=== PATIENT | male | born 1950 | race Caucasian/White ===

== ENCOUNTER 2016-10-19 12:01 | Inpatient (IN) | payer MEDICARE, MEDICAID ==
[~2016-10-19] VITALS: Ht 182.9 cm; Wt 62.6 kg
[2016-10-19] VITALS (10 sets, daily range): BP systolic 86–153; BP diastolic 57–77
[2016-10-19] MEDS ORDERED: Vancomycin 1 GM in NS 275 ML IV ONE (12:30)
[2016-10-19] MEDS ORDERED: Piperacillin/Tazobactam 3.375 GM in NS 110 ML IVPB ONE (12:30)
[2016-10-19] MEDS ORDERED: Zosyn 3.375gm inj ONE (12:31)
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
[2016-10-19] MEDS ORDERED: Zemuron 50mg/5ml Inj IV ONE (12:45)
[2016-10-19] MEDS ORDERED: Etomidate 40mg/20ml Inj IV ONE (12:45)
[2016-10-19] MEDS ORDERED: Acetaminophen 650 MG SUPP RECTAL ONE (12:45)
[2016-10-19 12:54] LABS: MEAN CORPUSCULAR HEMOGLOBIN 22.7 PG (27.0-31.0); MEAN CORPUSCULAR HGB CONC 28.1 G/DL (32.0-36.0); MEAN CORPUSCULAR VOLUME 81 FL (80-99); PLATELET COUNT 282 K/UL (150-450); RED BLOOD COUNT 6.47 M/UL (4.70-6.10); RED CELL DISTRIBUTION WIDTH 17.8 % (11.6-14.8)
[2016-10-19 12:59] LABS: WHITE BLOOD COUNT 31.1 K/UL (4.8-10.8)
[2016-10-19] MEDS ORDERED: EPINEPHrine 1mg/1ml Amp ONE (13:04)
[2016-10-19 13:11] LABS: ALBUMIN/GLOBULIN RATIO 0.5 (1.0-2.7); CALCIUM 9.2 mg/dL (8.6-10.2); CREATININE 1.9 mg/dL (0.7-1.2); GLOMERULAR FILTRATION RATE 35.9 mL/min (>60); POTASSIUM 4.1 mEQ/L (3.4-4.9); TOTAL PROTEIN 9.1 g/dL (6.6-8.7); TROPONIN I < 0.30 ng/mL (<=0.30)
[2016-10-19 13:15] LABS: REFLEX LACTIC ACID YES OR NO YES
[2016-10-19 13:28] LABS: BAND NEUTROPHILS % (MANUAL) 4 % (0-8); LYMPHOCYTES % (MANUAL) 5 % (20-45); NEUTROPHILS % (MANUAL) 80 % (45-75); TOTAL CELLS COUNTED 100
[2016-10-19 13:29] LABS: ANISOCYTOSIS 1+; BASOPHILS % (MANUAL) 0 % (0-2); EOSINOPHILS % (MANUAL) 0 % (0-3); HYPOCHROMASIA 1+; MICROCYTES 1+; PLATELET ESTIMATE ADEQUATE; PLATELET MORPHOLOGY NORMAL
[2016-10-19] MEDS ORDERED: Vancomycin 1gm inj IVPB ONE (13:34)
[2016-10-19] MEDS ORDERED: DuoNeb 0.5-3(2.5)mg/3ml neb HHN PRN (14:00)
[2016-10-19] MEDS ORDERED: LORazepam Inj 2mg/ml 1ml IV PRN (14:00)
[2016-10-19] MEDS ORDERED: Morphine Sulfate 4mg/ml Inj IVP PRN (14:00)
[2016-10-19] MEDS ORDERED: Miralax 17gm pkt ORAL PRN (14:00)
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
[2016-10-19] MEDS ORDERED: Amikacin Rx to dose MISC PRN (14:15)
[2016-10-19 14:50] LABS: APPEARANCE,URINE SLIGHTLY CLOUDY; KETONES,URINE 1+ (NEGATIVE); LEUKOCYTE ESTERASE ,URINE 3+ (NEGATIVE); NITRITE,URINE NEGATIVE (NEGATIVE); PH,URINE 5 (4.5-8.0); PROTEIN,URINE 3+ (NEGATIVE); UROBILINOGEN,URINE 1 MG/DL (0.0-1.0)
[2016-10-19 14:59] LABS: BACTERIA,URINE FEW /HPF; SQUAMOUS EPITHELIAL CELL,UR OCCASIONAL /LPF (NONE/OCC); WBC,URINE 30-40 /HPF (0 - 0)
[2016-10-19 15:00] LABS: YEAST,URINE FEW /HPF
[2016-10-19] MEDS ORDERED: Ertapenem 1 GM in NS 55 ML IV SCH (16:00)
[2016-10-19 16:45] LABS: ALBUMIN/GLOBULIN RATIO 0.5 (1.0-2.7); CALCIUM 8.3 mg/dL (8.6-10.2); CREATININE 1.8 mg/dL (0.7-1.2); GLOMERULAR FILTRATION RATE 38.2 mL/min (>60); POTASSIUM 4.4 mEQ/L (3.4-4.9); TOTAL PROTEIN 8.3 g/dL (6.6-8.7)
--- NOTE | 2016-10-19 16:49 | Consultation ---
Consult Note Consult Note Asked to eval at the request of Dr Flowers for renal failure Chief Complaint: Altered Level of Consciousness S HPI 66YOM BIBEMS from SNF for "altered mental status." EMS unable to provide specifics as to AMS. All info on PMHx from paperwork. No family members bedside. Per Paperwork on Levaquin for UTI Allergies: Coded Allergies: FLUPHENAZINE (Unverified Allergy, Unknown, 10/19/16) HALOPERIDOL (Unverified Allergy, Unknown, 10/19/16) Past Medical History: DM, COPD, dementia, psych hx Past Surgical History: other - Gtube Hx COPD: Yes Hx Diabetes: Yes History Of Psychiatric Problem: Yes - bipolar, dementia Patient examined- not historian- case discussed with RN Data reviewed Assessment/Plan Septic Shock Acute renal failure Free water deficit h/o COPD , DM , Psych disease Free water antibiotics Hemodynamic support Keep the BS in check Avoid nephrotoxics per orders KEV FELIX October 19, 2016 16:49
[2016-10-19 16:55] LABS: THYROID STIMULATING HORMONE 1.17 uIU/mL (0.300-4.500)
[2016-10-19] MEDS ORDERED: Amikacin 500 MG in NS 110 ML IV ONE (17:00)
[2016-10-19 17:10] LABS: MAGNESIUM 3.3 mg/dL (1.7-2.5); PHOSPHORUS 4.2 mg/dL (2.5-4.8); URIC ACID 12.5 mg/dL (3.0-7.5)
[2016-10-19] MEDS: Pantoprazole Inj IVP SCH ×2 (17:47→21:27)
[2016-10-19] MEDS: Heparin 5000 units/ml inj SUBQ SCH (21:28)
[2016-10-19] MEDS: Piperacillin/Tazobactam 3.375 GM in D5W 110 ML IVPB SCH (21:34)
[2016-10-19 22:38] LABS: REFLEX LACTIC ACID YES OR NO YES
--- NOTE | 2016-10-19 23:00 | History and Physical ---
History of Present Illness General Date patient seen: October 19, 2016 Reason for Hospitalization: Altered Level of Consciousness Present Illness HPI 66 year old male with hx of Dementia, cachexia, DM from SNF brought in by paramedics for "altered mental status. Pt was found to be in renal failure, acidotic. admitted to ICU for further work up. Allergies: Coded Allergies: FLUPHENAZINE (Unverified Allergy, Unknown, 10/19/16) HALOPERIDOL (Unverified Allergy, Unknown, 10/19/16) Patient History Healthcare decision maker [facility] in [facility] Resuscitation status Full Code Advanced Directive on File Past Medical/Surgical History Past Medical/Surgical History: (1) Feeding by G-tube (2) Cachexia (3) Diabetes mellitus (4) COPD (chronic obstructive pulmonary disease) Review of Systems Constitutional: Reports: no symptoms Physical Exam General Appearance: WD/WN Lines, tubes and drains: peripheral, central line HEENT: normocephalic, atraumatic Neck: non-tender, normal alignment Respiratory/Chest: chest wall non-tender, lungs clear Cardiovascular/Chest: normal peripheral pulses, normal rate Abdomen: normal bowel sounds, non tender Genitourinary/Rectal: normal genital exam Extremities: normal range of motion Last 24 Hour Vital Signs Date Time Temp Pulse Resp B/P Pulse Ox O2 Delivery O2 Flow Rate FiO2 10/19/16 22:00 102 34 100/65 100 Nasal Cannula 2.0 10/19/16 21:00 104 20 86/59 100 Nasal Cannula 2.0 10/19/16 20:00 99.8 105 31 95/63 100 Nasal Cannula 2.0 10/19/16 20:00 105 10/19/16 19:00 104 20 92/62 100 Nasal Cannula 2.0 10/19/16 18:00 102 20 153/77 100 Nasal Cannula 2.0 10/19/16 17:00 122 21 95/77 100 Nasal Cannula 2.0 10/19/16 16:00 120 19 94/69 100 Nasal Cannula 2.0 10/19/16 16:00 122 10/19/16 15:30 93/65 10/19/16 14:57 99.7 120 19 86/67 100 Nasal Cannula 2.0 10/19/16 14:40 99.1 127 20 99/57 100 Nasal Cannula 2.0 10/19/16 13:57 99.1 127 20 99/57 100 Nasal Cannula 2.0 10/19/16 11:57 61 20 109/56 100 Nasal Cannula 2.0 Laboratory Tests Test 10/19/16 12:45 10/19/16 14:00 10/19/16 15:30 10/19/16 21:45 White Blood Count 31.1 K/UL (4.8-10.8) *H Red Blood Count 6.47 M/UL (4.70-6.10) H Hemoglobin 14.7 G/DL (14.2-18.0) Hematocrit 52.2 % (42.0-52.0) H Mean Corpuscular Volume 81 FL (80-99) Mean Corpuscular Hemoglobin 22.7 PG (27.0-31.0) L Mean Corpuscular Hemoglobin Concent 28.1 G/DL (32.0-36.0) L Red Cell Distribution Width 17.8 % (11.6-14.8) H Platelet Count 282 K/UL (150-450) Mean Platelet Volume 8.0 FL (6.5-10.1) Neutrophils (%) (Auto) % (45.0-75.0) Lymphocytes (%) (Auto) % (20.0-45.0) Monocytes (%) (Auto) % (1.0-10.0) Eosinophils (%) (Auto) % (0.0-3.0) Basophils (%) (Auto) % (0.0-2.0) Differential Total Cells Counted 100 Neutrophils % (Manual) 80 % (45-75) H Lymphocytes % (Manual) 5 % (20-45) L Monocytes % (Manual) 11 % (1-10) H Eosinophils % (Manual) 0 % (0-3) Basophils % (Manual) 0 % (0-2) Band Neutrophils 4 % (0-8) Platelet Estimate Adequate Platelet Morphology Normal Hypochromasia 1+ Anisocytosis 1+ Microcytosis 1+ Sodium Level 180 mEQ/L (135-145) *H 179 mEQ/L (135-145) *H Potassium Level 4.1 mEQ/L (3.4-4.9) 4.4 mEQ/L (3.4-4.9) Chloride Level 135 mEQ/L (98-107) H 139 mEQ/L (98-107) H Carbon Dioxide Level 29 mEQ/L (20-30) 24 mEQ/L (20-30) Anion Gap 15 (5-15) 16 (5-15) H Blood Urea Nitrogen 71 mg/dL (7-23) H 74 mg/dL (7-23) H Creatinine 1.9 mg/dL (0.7-1.2) H 1.8 mg/dL (0.7-1.2) H Estimat Glomerular Filtration Rate 35.9 mL/min (>60) 38.2 mL/min (>60) Glucose Level 237 mg/dL (74-106) H 212 mg/dL (74-106) H Lactic Acid Level 4.60 mmol/L (0.66-2.22) H 2.90 mmol/L (0.66-2.22) H 2.20 mmol/L (0.66-2.22) Calcium Level 9.2 mg/dL (8.6-10.2) 8.3 mg/dL (8.6-10.2) L Total Bilirubin 0.3 mg/dL (0.0-1.2) 0.4 mg/dL (0.0-1.2) Aspartate Amino Transf (AST/SGOT) 45 U/L (5-40) H 51 U/L (5-40) H Alanine Aminotransferase (ALT/SGPT) 40 U/L (3-41) 36 U/L (3-41) Alkaline Phosphatase 66 U/L (40-129) 62 U/L (40-129) Total Creatine Kinase 1737 U/L (38-174) H 1510 U/L (38-174) H Creatine Kinase MB 3.0 ng/mL (< 6.7) Creatine Kinase MB Relative Index 0.1 Troponin I < 0.30 ng/mL (<=0.30) Total Protein 9.1 g/dL (6.6-8.7) H 8.3 g/dL (6.6-8.7) Albumin 3.3 g/dL (3.5-5.2) L 3.0 g/dL (3.5-5.2) L Globulin 5.8 g/dL 5.3 g/dL Albumin/Globulin Ratio 0.5 (1.0-2.7) L 0.5 (1.0-2.7) L Urine Color Yellow Urine Appearance Slightly cloudy Urine pH 5 (4.5-8.0) Urine Specific [place] 1.015 (1.005-1.035) Urine Protein 3+ (NEGATIVE) H Urine Glucose (UA) Negative (NEGATIVE) Urine Ketones 1+ (NEGATIVE) H Urine Occult Blood 4+ (NEGATIVE) H Urine Nitrite Negative (NEGATIVE) Urine Bilirubin Negative (NEGATIVE) Urine Urobilinogen 1 MG/DL (0.0-1.0) H Urine Leukocyte Esterase 3+ (NEGATIVE) H Urine RBC 5-10 /HPF (0 - 0) H Urine WBC 30-40 /HPF (0 - 0) H Urine Squamous Epithelial Cells Occasional /LPF Urine Bacteria Few /HPF (NONE) Urine Yeast Few /HPF (NONE) H Urine Eosinophils None seen Urine Osmolality Pending Urine Random Sodium 22 mmol/L Urine Random Chloride 27 mmol/L Urine Potassium Timed 118 mmol/L Plasma/Serum Osmolality Pending Uric Acid 12.5 mg/dL (3.0-7.5) H Phosphorus Level 4.2 mg/dL (2.5-4.8) Magnesium Level 3.3 mg/dL (1.7-2.5) H Thyroid Stimulating Hormone (TSH) 1.170 uIU/mL (0.300-4.500) Free Thyroxine 1.11 ng/dL (0.86-1.85) Free Triiodothyronine Pending Cortisol Pending Height (Feet): 5 Height (Inches): 6.00 Weight (Pounds): 130 Medications Current Medications Medications (Trade) Dose Ordered Sig/Rafael Route PRN Reason Start Time Stop Time Status Last Admin Dose Admin Acetaminophen (Tylenol) 650 mg Q4H PRN ORAL T>100.5 10/19/16 14:00 11/18/16 13:59 Albuterol/ Ipratropium (DuoNeb 0.5-3(2.5)mg/3ml) 3 ml Q4H PRN HHN Shortness of Breath 10/19/16 14:00 10/24/16 13:59 Dextrose (Dextrose 50%) STAT PRN IV Hypoglycemia 10/19/16 18:45 11/18/16 18:44 Heparin Sodium (Porcine) (Heparin 5000 units/ml) 5,000 units EVERY 12 HOURS SUBQ 10/19/16 21:00 11/18/16 20:59 10/19/16 21:28 Insulin Aspart (NovoLOG) Q6HR SUBQ 10/20/16 00:00 11/19/16 00:00 Lorazepam 2 mg 2 mg Q2H PRN IV For Anxiety 10/19/16 14:00 10/26/16 13:59 Morphine Sulfate (Morphine Sulfate) 4 mg Q4H PRN IVP Severe Pain (Pain Scale 7-10) 10/19/16 14:00 10/26/16 13:59 Norepinephrine Bitartrate/ Dextrose (Levophed/D5W) 254 ml @ 0 mls/hr Q24H IV 10/19/16 15:30 11/18/16 15:29 Ondansetron HCl (Zofran) 4 mg Q6H PRN IVP Nausea & Vomiting 10/19/16 14:00 11/18/16 13:59 Pantoprazole (Protonix) 40 mg Q12HR IVP 10/19/16 17:00 11/18/16 16:59 10/19/16 21:27 Piperacillin Sod/ Tazobactam Sod 3.375 gm/Dextrose 110 ml @ 27.5 mls/hr EVERY 8 HOURS IVPB 10/19/16 22:00 10/24/16 21:59 10/19/16 21:34 Polyethylene Glycol (Miralax) 17 gm DAILYPRN PRN ORAL Constipation 10/19/16 14:00 11/18/16 13:59 Sodium Chloride (0.45% NS 1000ml) 1,000 ml @ 150 mls/hr Q6H40M IV 10/19/16 17:30 11/18/16 17:29 10/19/16 16:52 Vancomycin HCl 750 mg/Dextrose 275 ml @ 183.708 mls/hr Q24H IVPB 10/20/16 12:00 10/25/16 11:59 Vancomycin HCl 1 ea 1 ea DAILY PRN MISC . 10/19/16 14:30 11/18/16 14:29 Assessment/Plan Problem List: (1) Sepsis ICD Codes: A41.9 - Sepsis, unspecified organism SNOMED: 49209532 Qualifiers: Qualified Codes: A41.9 - Sepsis, unspecified organism (2) FLORIAN (acute kidney injury) ICD Codes: N17.9 - Acute kidney failure, unspecified SNOMED: 74535078 (3) Altered level of consciousness ICD Codes: R40.4 - Transient alteration of awareness SNOMED: 9684191 (4) Hypernatremia ICD Codes: E87.0 - Hyperosmolality and hypernatremia SNOMED: 25442355 Assessment/Plan IV fluids renal work up IV antibiotics f/u wbc avila culture dvt prophylaxis BRIE PASCUAL October 19, 2016 23:00
--- NOTE | 2016-10-19 23:28 | Consultation ---
Consult Note Consult Note ID Dic# [id number] BELL PAREKH M.D. October 19, 2016 23:28
[2016-10-19] MEDS ORDERED: Vancomycin 1 GM in D5W 275 ML IV SCH (23:45)
[2016-10-20] VITALS (21 sets, daily range): BP systolic 83–105; BP diastolic 50–65
[2016-10-20] MEDS: NovoLOG Insulin Flexpen SUBQ SCH ×4 (00:35→18:12)
--- NOTE | 2016-10-20 03:48 | Consultation ---
DATE OF CONSULTATION: 10/19/2016 INFECTIOUS DISEASES CONSULTATION CONSULTING PHYSICIAN: Remy Campoverde M.D. REFERRING PHYSICIAN: Janis Flowers M.D. REASON FOR CONSULTATION: Evaluation of the patient for pneumonia and antibiotic management. HISTORY OF PRESENT ILLNESS: The patient is a 66-year-old male with multiple medical problems as listed above, who was admitted to this center due to respiratory distress and hypertension. Infectious Disease consultation has been requested for further evaluation of patient. The patient is well known to me from prior recent admissions to [facility] where the patient was diagnosed with pneumonia, pneumococcus, pseudomonas and methicillin resistant Staphylococcus aureus. The patient was discharged to complete a total of 2 weeks of Zosyn and vancomycin and 7 days of Levaquin. PAST MEDICAL HISTORY: 1. Sepsis. 2. Pneumonia (pneumococcus, pseudomonas and methicillin resistant Staphylococcus aureus). 3. History of urinary tract infection recently. 4. Chronic obstructive pulmonary disease. 5. Diabetes. 6. Peptic ulcer disease. 7. Peripheral neuropathy. 8. Bipolar disorder. ALLERGIES: No allergy to antibiotics. MEDICATIONS: The patient has been started on IV Zosyn and vancomycin. FAMILY HISTORY: Noncontributory. SOCIAL HISTORY: The patient lives in a alf. REVIEW OF SYSTEMS: Unobtainable. PHYSICAL EXAMINATION: VITAL SIGNS: Temperature 98.8 degrees, pulse 56, respiratory rate 18, and blood pressure 160/64. HEENT: Mild pale conjunctivae. No icterus. NECK: Supple. CHEST: Coarse breathing sounds. HEART: S1 and S2. ABDOMEN: Soft. PEG tube in place. EXTREMITIES: No cyanosis. NEUROLOGIC: Lethargic. LABORATORY AND DIAGNOSTIC DATA: WBC 31, hemoglobin 14, and platelet 282,000. BUN 74 and creatinine 1.8. AST and ALT are unremarkable. Chest x-ray, no acute process. ASSESSMENT: The patient is a 66-year-old male with multiple medical problem, who has been admitted to this medical center with sepsis and hypertension. The patient has been started on broad-spectrum antibiotics while the cultures are pending. PLAN: 1. We will continue on Zosyn and vancomycin day #1. 2. Monitor CBC. 3. Monitor BMP. 4. Monitor cultures (blood, sputum, and urine.) 5. Monitor chest x-ray. 6. Based on the patient's clinical course and laboratories, we will give further recommendations. Thank you Dr. Flowers for allowing me to participate in the care of this patient. I will follow the patient with you during this hospitalization. Remy Campoverde M.D. DR: ART JOB#: [id number] CC:
[2016-10-20] MEDS: Piperacillin/Tazobactam 3.375 GM in D5W 110 ML IVPB SCH ×4 (06:10→21:40)
[2016-10-20 06:19] LABS: MEAN CORPUSCULAR HEMOGLOBIN 22.7 PG (27.0-31.0); MEAN CORPUSCULAR HGB CONC 28.1 G/DL (32.0-36.0); MEAN CORPUSCULAR VOLUME 81 FL (80-99); MEAN PLATELET VOLUME 8.9 FL (6.5-10.1); PLATELET COUNT 121 K/UL (150-450); RED BLOOD COUNT 6.13 M/UL (4.70-6.10); RED CELL DISTRIBUTION WIDTH 17.7 % (11.6-14.8)
[2016-10-20 06:28] LABS: WHITE BLOOD COUNT 24.6 K/UL (4.8-10.8)
[2016-10-20 06:33] LABS: CRP QUANT 3.8 mg/dL (< 0.5); URIC ACID 11.8 mg/dL (3.0-7.5)
[2016-10-20 06:39] LABS: INR 1.3 (0.9-1.1); PROTHROMBIN TIME 13.4 SEC (9.30-11.50)
[2016-10-20 07:02] LABS: ALBUMIN/GLOBULIN RATIO 0.7 (1.0-2.7); CALCIUM 8.2 mg/dL (8.6-10.2); CREATININE 1.6 mg/dL (0.7-1.2); GLOMERULAR FILTRATION RATE 43.7 mL/min (>60); POTASSIUM 4.1 mEQ/L (3.4-4.9); TOTAL PROTEIN 7.8 g/dL (6.6-8.7)
[2016-10-20 07:10] LABS: MAGNESIUM 3.3 MG/DL (1.5-2.4); PHOSPHORUS 4.4 MG/DL (2.5-4.9)
--- NOTE | 2016-10-20 08:27 | Cardiology Report ---
APPROVED REPORT EXAM: Two-dimensional and M-mode echocardiogram with Doppler and color Doppler. INDICATION LV function M-Mode DIMENSIONS Left Atrium (MM)4.1 (1.6-4.0cm) Aortic Root3.9 (2.0-3.7cm) Aortic Cusp Exc.2.2 (1.5-2.0cm) Technically difficult study due to very poor acoustical windows. M-mode measurements of left ventricle not obtainable due to cardiac position (angle) Normal left ventricular chamber size, systolic function and wall motion to extent visualized. Left ventricular ejection fraction grossly estimated to be normal. Study quality precludes accurate assessment of regional wall motion. Mild left ventricular hypertrophy by 2-D. No evidence of pericardial effusion. All other cardiac chamber sizes are within normal limits. Focal aortic valve sclerosis with adequate cusp excursion. Thickened mitral valve leaflets with normal excursion. Mitral annulus and aortic root calcification. Aortic root mild dilatation. Pulmonic valve not well visualized. Normal tricuspid valve structure. IVC at normal size with physiologic collapse. A color flow and spectral Doppler study was performed and revealed: No aortic insufficiency. Trace mitral regurgitation. Trace tricuspid regurgitation. Tricuspid systolic velocities suggests peak right ventricular systolic pressure of 24 mmHg. No pulmonic regurgitation present.
[2016-10-20 08:47] LABS: BAND NEUTROPHILS % (MANUAL) 2 % (0-8); BASOPHILS % (MANUAL) 0 % (0-2); EOSINOPHILS % (MANUAL) 1 % (0-3); LYMPHOCYTES % (MANUAL) 19 % (20-45); NEUTROPHILS % (MANUAL) 72 % (45-75); NUCLEATED RED BLOOD CELLS 1 /100 WBC; PLATELET CLUMPS 2+; PLATELET ESTIMATE ADEQUATE; TOTAL CELLS COUNTED 100
[2016-10-20 08:48] LABS: ANISOCYTOSIS 1+; PLATELET MORPHOLOGY NORMAL
[2016-10-20] MEDS ORDERED: Heparin 2000 units/Ns 1000ml INJ ONE (09:00)
[2016-10-20] MEDS ORDERED: Sodium Bicarbonate 8.4% 50ml Inj IV ONE (09:00)
[2016-10-20] MEDS ORDERED: Pantoprazole Inj IVP SCH (09:00)
[2016-10-20] MEDS ORDERED: Lidocaine 1% Plain 30 ml INJ ONE (09:00)
[2016-10-20 09:16] LABS: ABG PCO2 40.5 mmHg (35.0-45.0)
[2016-10-20 09:17] LABS: ABG ALLEN TEST POSITIVE; ABG BASE EXCESS 4.4
--- NOTE | 2016-10-20 09:21 | Diagnostic Imaging Report ---
Indication:Elevated Bun and Creatinine. Technique: Grayscale and duplex Doppler imaging of the kidneys performed. Comparison: None Findings: The size, contour, and echogenicity of both kidneys are within normal limits. There is a small right renal cyst demonstrated measuring 1.2 cm. Both kidneys measure between 10 and 11 cm in length. There is no hydronephrosis. The IVC and urinary bladder are unremarkable. Impression: Negative study. Right renal cyst
[2016-10-20 09:27] LABS: CORTISOL LC 49.8 ug/dL (.)
[2016-10-20] MEDS: Pantoprazole Inj IVP SCH ×2 (09:31→21:38)
[2016-10-20] MEDS: Heparin 5000 units/ml inj SUBQ SCH ×2 (09:32→21:39)
--- NOTE | 2016-10-20 10:06 | General Progress Note ---
Progress Note Progress Note pt needs PICC line to receive life-saving meds/ treatment. He is unable to sing for consent. No family available to sign for him BRIE PASCUAL October 20, 2016 10:06
--- NOTE | 2016-10-20 10:50 | Diagnostic Imaging Report ---
Indication: Headache Technique: Contiguous 5 mm thick transaxial imaging of the head obtained in a Siemens Sensation [address] scanner. Soft tissue and bone windows generated. Total Dose length Product (DLP): [address] Dose Index Volume (CTDIvol): 70.38 mGy Comparison: none Findings: There is moderate prominence of the ventricles, basal cisterns, and cerebral sulci consistent with atrophy. There is encephalomalacia in the bifrontal regions which may be on the basis of previous trauma. Moderate, nonspecific, white matter hypoattenuation is noted throughout the brain consistent with chronic small vessel disease. There is no midline shift, edema, acute hemorrhage, mass effect, or abnormal extra-axial fluid collections. Bones and extra osseous soft tissues are unremarkable. Impression: No acute intracranial bleed, mass effect or edema. Bifrontal encephalomalacia probably posttraumatic in nature. Moderate atrophy of the brain. Evidence of chronic small vessel disease involving white matter tracts. The CT scanner at [facility] is accredited by the [employer] and the scans are performed using protocols designed to limit radiation exposure to as low as reasonably achievable to attain images of sufficient resolution adequate for diagnostic evaluation.
--- NOTE | 2016-10-20 11:32 | Pulmonolgy Critical Care Note ---
Critical Care - Asmt/Plan Problems: (1) Sepsis (2) FLORIAN (acute kidney injury) (3) Acute encephalopathy (4) Cachexia (5) Diabetes mellitus (6) COPD (chronic obstructive pulmonary disease) Respiratory: monitor respiratory rate, adjust FIO2, CXR Cardiac: continue to monitor HR/BP Renal: F/U I&O, check electrolytes Infectious Disease: check cultures Gastrointestinal: continue feedings/current rate, hold feedings Endocrine: monitor blood sugar, check HgA1C, continue sliding scale insulin Hematologic: transfuse if hgb<8.5 Neurologic: PRN Ativan, PRN Morphine, keep patient comfortable Prophylaxis: Protonix, Heparin Disposition: transfer 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, 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 Critical Care - Objective Last 24 Hour Vital Signs Date Time Temp Pulse Resp B/P Pulse Ox O2 Delivery O2 Flow Rate FiO2 10/20/16 11:00 85 30 101/62 100 Nasal Cannula 2.0 10/20/16 10:00 84 31 98/60 99 Nasal Cannula 2.0 10/20/16 09:00 87 35 105/63 96 Nasal Cannula 2.0 10/20/16 08:00 98.0 88 36 92/63 98 Nasal Cannula 2.0 10/20/16 08:00 88 10/20/16 07:00 85 34 83/61 98 Nasal Cannula 2.0 10/20/16 07:00 87 31 83/59 100 Nasal Cannula 2.0 10/20/16 06:00 87 31 88/60 100 Nasal Cannula 2.0 10/20/16 05:00 86 31 86/62 100 Nasal Cannula 2.0 10/20/16 04:00 102 10/20/16 04:00 97.8 87 31 89/50 100 Nasal Cannula 2.0 10/20/16 03:00 87 31 93/64 100 Nasal Cannula 2.0 10/20/16 02:00 92 31 89/61 100 Nasal Cannula 2.0 10/20/16 01:00 94 31 94/64 100 Nasal Cannula 2.0 10/20/16 00:00 99 10/20/16 00:00 98.2 97 31 87/63 100 Nasal Cannula 2.0 10/19/16 23:00 100 31 93/64 100 Nasal Cannula 2.0 10/19/16 22:00 102 34 100/65 100 Nasal Cannula 2.0 10/19/16 21:00 104 20 86/59 100 Nasal Cannula 2.0 10/19/16 20:00 99.8 105 31 95/63 100 Nasal Cannula 2.0 10/19/16 20:00 105 10/19/16 19:00 104 20 92/62 100 Nasal Cannula 2.0 10/19/16 18:00 102 20 153/77 100 Nasal Cannula 2.0 10/19/16 17:00 122 21 95/77 100 Nasal Cannula 2.0 10/19/16 16:00 120 19 94/69 100 Nasal Cannula 2.0 10/19/16 16:00 122 10/19/16 15:30 93/65 10/19/16 14:57 99.7 120 19 86/67 100 Nasal Cannula 2.0 10/19/16 14:40 99.1 127 20 99/57 100 Nasal Cannula 2.0 10/19/16 13:57 99.1 127 20 99/57 100 Nasal Cannula 2.0 10/19/16 11:57 61 20 109/56 100 Nasal Cannula 2.0 Status: sedated Condition: critical HEENT: atraumatic Lungs: clear Heart: HR/BP stable, HR/BP unstable, regular Abdomen: non-tender Extremities: no C/C/E Decubiti: location Micro: Microbiology Date/Time Source Procedure Growth Status 10/19/16 14:00 Urine,Clean Catch Urine Culture - Preliminary Resulted 10/19/16 17:00 Sacral Wound Gram Stain - Final Resulted 10/19/16 17:00 Sacral Wound Wound Culture Pending Resulted Accucheck: 136 Critical Care - Subjective ROS Limited/Unobtainable: No ICU Day: 2 Condition: critical EKG Rhythm: Sinus Rhythm Fluids: d5w 150 cc.hour Drips: non I&O: Intake and Output 10/19/16 10/20/16 19:00 07:00 Intake Total 955 ml 1705.0 ml Output Total 331 ml 605 ml Balance 624 ml 1100.0 ml Intake IV Total 955 ml 1705.0 ml Output Urine Total 330 ml 605 ml Stool Total 1 ml # Bowel Movements 3 2 CXR: NAD Labs: Laboratory Tests Test 10/19/16 12:45 10/19/16 14:00 10/19/16 15:30 10/19/16 21:45 White Blood Count 31.1 K/UL (4.8-10.8) *H Red Blood Count 6.47 M/UL (4.70-6.10) H Hemoglobin 14.7 G/DL (14.2-18.0) Hematocrit 52.2 % (42.0-52.0) H Mean Corpuscular Volume 81 FL (80-99) Mean Corpuscular Hemoglobin 22.7 PG (27.0-31.0) L Mean Corpuscular Hemoglobin Concent 28.1 G/DL (32.0-36.0) L Red Cell Distribution Width 17.8 % (11.6-14.8) H Platelet Count 282 K/UL (150-450) Mean Platelet Volume 8.0 FL (6.5-10.1) Neutrophils (%) (Auto) % (45.0-75.0) Lymphocytes (%) (Auto) % (20.0-45.0) Monocytes (%) (Auto) % (1.0-10.0) Eosinophils (%) (Auto) % (0.0-3.0) Basophils (%) (Auto) % (0.0-2.0) Differential Total Cells Counted 100 Neutrophils % (Manual) 80 % (45-75) H Lymphocytes % (Manual) 5 % (20-45) L Monocytes % (Manual) 11 % (1-10) H Eosinophils % (Manual) 0 % (0-3) Basophils % (Manual) 0 % (0-2) Band Neutrophils 4 % (0-8) Platelet Estimate Adequate Platelet Morphology Normal Hypochromasia 1+ Anisocytosis 1+ Microcytosis 1+ Sodium Level 180 mEQ/L (135-145) *H 179 mEQ/L (135-145) *H Potassium Level 4.1 mEQ/L (3.4-4.9) 4.4 mEQ/L (3.4-4.9) Chloride Level 135 mEQ/L (98-107) H 139 mEQ/L (98-107) H Carbon Dioxide Level 29 mEQ/L (20-30) 24 mEQ/L (20-30) Anion Gap 15 (5-15) 16 (5-15) H Blood Urea Nitrogen 71 mg/dL (7-23) H 74 mg/dL (7-23) H Creatinine 1.9 mg/dL (0.7-1.2) H 1.8 mg/dL (0.7-1.2) H Estimat Glomerular Filtration Rate 35.9 mL/min (>60) 38.2 mL/min (>60) Glucose Level 237 mg/dL (74-106) H 212 mg/dL (74-106) H Lactic Acid Level 4.60 mmol/L (0.66-2.22) H 2.90 mmol/L (0.66-2.22) H 2.20 mmol/L (0.66-2.22) Calcium Level 9.2 mg/dL (8.6-10.2) 8.3 mg/dL (8.6-10.2) L Total Bilirubin 0.3 mg/dL (0.0-1.2) 0.4 mg/dL (0.0-1.2) Aspartate Amino Transf (AST/SGOT) 45 U/L (5-40) H 51 U/L (5-40) H Alanine Aminotransferase (ALT/SGPT) 40 U/L (3-41) 36 U/L (3-41) Alkaline Phosphatase 66 U/L (40-129) 62 U/L (40-129) Total Creatine Kinase 1737 U/L (38-174) H 1510 U/L (38-174) H Creatine Kinase MB 3.0 ng/mL (< 6.7) Creatine Kinase MB Relative Index 0.1 Troponin I < 0.30 ng/mL (<=0.30) Total Protein 9.1 g/dL (6.6-8.7) H 8.3 g/dL (6.6-8.7) Albumin 3.3 g/dL (3.5-5.2) L 3.0 g/dL (3.5-5.2) L Globulin 5.8 g/dL 5.3 g/dL Albumin/Globulin Ratio 0.5 (1.0-2.7) L 0.5 (1.0-2.7) L Urine Color Yellow Urine Appearance Slightly cloudy Urine pH 5 (4.5-8.0) Urine Specific [place] 1.015 (1.005-1.035) Urine Protein 3+ (NEGATIVE) H Urine Glucose (UA) Negative (NEGATIVE) Urine Ketones 1+ (NEGATIVE) H Urine Occult Blood 4+ (NEGATIVE) H Urine Nitrite Negative (NEGATIVE) Urine Bilirubin Negative (NEGATIVE) Urine Urobilinogen 1 MG/DL (0.0-1.0) H Urine Leukocyte Esterase 3+ (NEGATIVE) H Urine RBC 5-10 /HPF (0 - 0) H Urine WBC 30-40 /HPF (0 - 0) H Urine Squamous Epithelial Cells Occasional /LPF Urine Bacteria Few /HPF (NONE) Urine Yeast Few /HPF (NONE) H Urine Eosinophils None seen Urine Osmolality Pending Urine Random Sodium 22 mmol/L Urine Random Chloride 27 mmol/L Urine Potassium Timed 118 mmol/L Plasma/Serum Osmolality Pending Uric Acid 12.5 mg/dL (3.0-7.5) H Phosphorus Level 4.2 mg/dL (2.5-4.8) Magnesium Level 3.3 mg/dL (1.7-2.5) H Thyroid Stimulating Hormone (TSH) 1.170 uIU/mL (0.300-4.500) Free Thyroxine 1.11 ng/dL (0.86-1.85) Free Triiodothyronine 1.8 pg/mL (2.0-4.4) L Cortisol 49.8 ug/dL (.) Test 10/20/16 05:15 10/20/16 09:00 White Blood Count 24.6 K/UL (4.8-10.8) *H Red Blood Count 6.13 M/UL (4.70-6.10) H Hemoglobin 13.9 G/DL (14.2-18.0) L Hematocrit 49.4 % (42.0-52.0) Mean Corpuscular Volume 81 FL (80-99) Mean Corpuscular Hemoglobin 22.7 PG (27.0-31.0) L Mean Corpuscular Hemoglobin Concent 28.1 G/DL (32.0-36.0) L Red Cell Distribution Width 17.7 % (11.6-14.8) H Platelet Count 121 K/UL (150-450) #L Mean Platelet Volume 8.9 FL (6.5-10.1) Neutrophils (%) (Auto) % (45.0-75.0) Lymphocytes (%) (Auto) % (20.0-45.0) Monocytes (%) (Auto) % (1.0-10.0) Eosinophils (%) (Auto) % (0.0-3.0) Basophils (%) (Auto) % (0.0-2.0) Differential Total Cells Counted 100 Neutrophils % (Manual) 72 % (45-75) Lymphocytes % (Manual) 19 % (20-45) L Monocytes % (Manual) 6 % (1-10) Eosinophils % (Manual) 1 % (0-3) Basophils % (Manual) 0 % (0-2) Band Neutrophils 2 % (0-8) Nucleated Red Blood Cells 1 /100 WBC Platelet Estimate Adequate Platelet Morphology Normal Clumped Platelets 2+ Anisocytosis 1+ Prothrombin Time 13.4 SEC (9.30-11.50) H Prothromb Time International Ratio 1.3 (0.9-1.1) H Activated Partial Thromboplast Time 29 SEC (23-33) Sodium Level 180 mEQ/L (135-145) *H Potassium Level 4.1 mEQ/L (3.4-4.9) Chloride Level 137 mEQ/L (98-107) H Carbon Dioxide Level 25 mEQ/L (20-30) Anion Gap 18 (5-15) H Blood Urea Nitrogen 74 mg/dL (7-23) H Creatinine 1.6 mg/dL (0.7-1.2) H Estimat Glomerular Filtration Rate 43.7 mL/min (>60) Glucose Level 141 mg/dL (74-106) H Uric Acid 11.8 mg/dL (3.0-7.5) H Calcium Level 8.2 mg/dL (8.6-10.2) L Phosphorus Level 4.4 MG/DL (2.5-4.9) Magnesium Level 3.3 MG/DL (1.5-2.4) H Total Bilirubin 0.7 mg/dL (0.0-1.2) Gamma Glutamyl Transpeptidase 19 U/L (8-61) Aspartate Amino Transf (AST/SGOT) 52 U/L (5-40) H Alanine Aminotransferase (ALT/SGPT) 28 U/L (3-41) Alkaline Phosphatase 59 U/L (40-129) Total Creatine Kinase 1012 U/L (38-174) H C-Reactive Protein, Quantitative 3.8 mg/dL (< 0.5) H Pro-B-Type Natriuretic Peptide 6056 pg/mL (0-125) H Total Protein 7.8 g/dL (6.6-8.7) Albumin 3.3 g/dL (3.5-5.2) L Globulin 4.5 g/dL Albumin/Globulin Ratio 0.7 (1.0-2.7) L Arterial Blood pH 7.465 (7.350-7.450) Arterial Blood Partial Pressure CO2 40.5 mmHg (35.0-45.0) Arterial Blood Partial Pressure O2 99.2 mmHg (75.0-100.0) Arterial Blood HCO3 28.5 mmol/L (22.0-26.0) H Arterial Blood Oxygen Saturation 97.1 % (92.0-98.0) Arterial Blood Base Excess 4.4 Tony Test Positive BRIE PASCUAL October 20, 2016 11:32
--- NOTE | 2016-10-20 11:40 | Infectious Diseases Prog Note ---
Assessment/Plan Assessment/Plan A: The patient is a 66-year-old male with Pneumonia Sepsis Respiratory distress Hypotension hx of Pneumonia (pneumococcus, pseudomonas and MRSA ( 09/2016 ) History of urinary tract infection recently COPD Diabetes Peptic ulcer disease Peripheral neuropathy Bipolar disorder PLAN: continue on Zosyn and vancomycin day # 2 Monitor CBC Monitor BMP Monitor cultures (blood, sputum, and urine.) Monitor chest x-ray PICC Subjective Allergies: Coded Allergies: FLUPHENAZINE (Unverified Allergy, Unknown, 10/19/16) HALOPERIDOL (Unverified Allergy, Unknown, 10/19/16) Subjective afebrile Objective Vital Signs Last 24 Hour Vital Signs Date Time Temp Pulse Resp B/P Pulse Ox O2 Delivery O2 Flow Rate FiO2 10/20/16 11:00 85 30 101/62 100 Nasal Cannula 2.0 10/20/16 10:00 84 31 98/60 99 Nasal Cannula 2.0 10/20/16 09:00 87 35 105/63 96 Nasal Cannula 2.0 10/20/16 08:00 98.0 88 36 92/63 98 Nasal Cannula 2.0 10/20/16 08:00 88 10/20/16 07:00 85 34 83/61 98 Nasal Cannula 2.0 10/20/16 07:00 87 31 83/59 100 Nasal Cannula 2.0 10/20/16 06:00 87 31 88/60 100 Nasal Cannula 2.0 10/20/16 05:00 86 31 86/62 100 Nasal Cannula 2.0 10/20/16 04:00 102 10/20/16 04:00 97.8 87 31 89/50 100 Nasal Cannula 2.0 10/20/16 03:00 87 31 93/64 100 Nasal Cannula 2.0 10/20/16 02:00 92 31 89/61 100 Nasal Cannula 2.0 10/20/16 01:00 94 31 94/64 100 Nasal Cannula 2.0 10/20/16 00:00 99 10/20/16 00:00 98.2 97 31 87/63 100 Nasal Cannula 2.0 10/19/16 23:00 100 31 93/64 100 Nasal Cannula 2.0 10/19/16 22:00 102 34 100/65 100 Nasal Cannula 2.0 10/19/16 21:00 104 20 86/59 100 Nasal Cannula 2.0 10/19/16 20:00 99.8 105 31 95/63 100 Nasal Cannula 2.0 10/19/16 20:00 105 10/19/16 19:00 104 20 92/62 100 Nasal Cannula 2.0 10/19/16 18:00 102 20 153/77 100 Nasal Cannula 2.0 10/19/16 17:00 122 21 95/77 100 Nasal Cannula 2.0 10/19/16 16:00 120 19 94/69 100 Nasal Cannula 2.0 10/19/16 16:00 122 10/19/16 15:30 93/65 10/19/16 14:57 99.7 120 19 86/67 100 Nasal Cannula 2.0 10/19/16 14:40 99.1 127 20 99/57 100 Nasal Cannula 2.0 10/19/16 13:57 99.1 127 20 99/57 100 Nasal Cannula 2.0 10/19/16 11:57 61 20 109/56 100 Nasal Cannula 2.0 Height (Feet): 6 Height (Inches): 6.00 Weight (Pounds): 138 HEENT: atraumatic Respiratory/Chest: decreased breath sounds Cardiovascular: normal rate Abdomen: soft, non tender Extremities: no cyanosis Microbiology Date/Time Source Procedure Growth Status 10/19/16 14:00 Urine,Clean Catch Urine Culture - Preliminary Resulted 10/19/16 17:00 Sacral Wound Gram Stain - Final Resulted 10/19/16 17:00 Sacral Wound Wound Culture Pending Resulted Laboratory Tests Test 10/19/16 12:45 10/19/16 14:00 10/19/16 15:30 10/19/16 21:45 White Blood Count 31.1 K/UL (4.8-10.8) *H Red Blood Count 6.47 M/UL (4.70-6.10) H Hemoglobin 14.7 G/DL (14.2-18.0) Hematocrit 52.2 % (42.0-52.0) H Mean Corpuscular Volume 81 FL (80-99) Mean Corpuscular Hemoglobin 22.7 PG (27.0-31.0) L Mean Corpuscular Hemoglobin Concent 28.1 G/DL (32.0-36.0) L Red Cell Distribution Width 17.8 % (11.6-14.8) H Platelet Count 282 K/UL (150-450) Mean Platelet Volume 8.0 FL (6.5-10.1) Neutrophils (%) (Auto) % (45.0-75.0) Lymphocytes (%) (Auto) % (20.0-45.0) Monocytes (%) (Auto) % (1.0-10.0) Eosinophils (%) (Auto) % (0.0-3.0) Basophils (%) (Auto) % (0.0-2.0) Differential Total Cells Counted 100 Neutrophils % (Manual) 80 % (45-75) H Lymphocytes % (Manual) 5 % (20-45) L Monocytes % (Manual) 11 % (1-10) H Eosinophils % (Manual) 0 % (0-3) Basophils % (Manual) 0 % (0-2) Band Neutrophils 4 % (0-8) Platelet Estimate Adequate Platelet Morphology Normal Hypochromasia 1+ Anisocytosis 1+ Microcytosis 1+ Sodium Level 180 mEQ/L (135-145) *H 179 mEQ/L (135-145) *H Potassium Level 4.1 mEQ/L (3.4-4.9) 4.4 mEQ/L (3.4-4.9) Chloride Level 135 mEQ/L (98-107) H 139 mEQ/L (98-107) H Carbon Dioxide Level 29 mEQ/L (20-30) 24 mEQ/L (20-30) Anion Gap 15 (5-15) 16 (5-15) H Blood Urea Nitrogen 71 mg/dL (7-23) H 74 mg/dL (7-23) H Creatinine 1.9 mg/dL (0.7-1.2) H 1.8 mg/dL (0.7-1.2) H Estimat Glomerular Filtration Rate 35.9 mL/min (>60) 38.2 mL/min (>60) Glucose Level 237 mg/dL (74-106) H 212 mg/dL (74-106) H Lactic Acid Level 4.60 mmol/L (0.66-2.22) H 2.90 mmol/L (0.66-2.22) H 2.20 mmol/L (0.66-2.22) Calcium Level 9.2 mg/dL (8.6-10.2) 8.3 mg/dL (8.6-10.2) L Total Bilirubin 0.3 mg/dL (0.0-1.2) 0.4 mg/dL (0.0-1.2) Aspartate Amino Transf (AST/SGOT) 45 U/L (5-40) H 51 U/L (5-40) H Alanine Aminotransferase (ALT/SGPT) 40 U/L (3-41) 36 U/L (3-41) Alkaline Phosphatase 66 U/L (40-129) 62 U/L (40-129) Total Creatine Kinase 1737 U/L (38-174) H 1510 U/L (38-174) H Creatine Kinase MB 3.0 ng/mL (< 6.7) Creatine Kinase MB Relative Index 0.1 Troponin I < 0.30 ng/mL (<=0.30) Total Protein 9.1 g/dL (6.6-8.7) H 8.3 g/dL (6.6-8.7) Albumin 3.3 g/dL (3.5-5.2) L 3.0 g/dL (3.5-5.2) L Globulin 5.8 g/dL 5.3 g/dL Albumin/Globulin Ratio 0.5 (1.0-2.7) L 0.5 (1.0-2.7) L Urine Color Yellow Urine Appearance Slightly cloudy Urine pH 5 (4.5-8.0) Urine Specific [place] 1.015 (1.005-1.035) Urine Protein 3+ (NEGATIVE) H Urine Glucose (UA) Negative (NEGATIVE) Urine Ketones 1+ (NEGATIVE) H Urine Occult Blood 4+ (NEGATIVE) H Urine Nitrite Negative (NEGATIVE) Urine Bilirubin Negative (NEGATIVE) Urine Urobilinogen 1 MG/DL (0.0-1.0) H Urine Leukocyte Esterase 3+ (NEGATIVE) H Urine RBC 5-10 /HPF (0 - 0) H Urine WBC 30-40 /HPF (0 - 0) H Urine Squamous Epithelial Cells Occasional /LPF Urine Bacteria Few /HPF (NONE) Urine Yeast Few /HPF (NONE) H Urine Eosinophils None seen Urine Osmolality Pending Urine Random Sodium 22 mmol/L Urine Random Chloride 27 mmol/L Urine Potassium Timed 118 mmol/L Plasma/Serum Osmolality Pending Uric Acid 12.5 mg/dL (3.0-7.5) H Phosphorus Level 4.2 mg/dL (2.5-4.8) Magnesium Level 3.3 mg/dL (1.7-2.5) H Thyroid Stimulating Hormone (TSH) 1.170 uIU/mL (0.300-4.500) Free Thyroxine 1.11 ng/dL (0.86-1.85) Free Triiodothyronine 1.8 pg/mL (2.0-4.4) L Cortisol 49.8 ug/dL (.) Test 10/20/16 05:15 10/20/16 09:00 White Blood Count 24.6 K/UL (4.8-10.8) *H Red Blood Count 6.13 M/UL (4.70-6.10) H Hemoglobin 13.9 G/DL (14.2-18.0) L Hematocrit 49.4 % (42.0-52.0) Mean Corpuscular Volume 81 FL (80-99) Mean Corpuscular Hemoglobin 22.7 PG (27.0-31.0) L Mean Corpuscular Hemoglobin Concent 28.1 G/DL (32.0-36.0) L Red Cell Distribution Width 17.7 % (11.6-14.8) H Platelet Count 121 K/UL (150-450) #L Mean Platelet Volume 8.9 FL (6.5-10.1) Neutrophils (%) (Auto) % (45.0-75.0) Lymphocytes (%) (Auto) % (20.0-45.0) Monocytes (%) (Auto) % (1.0-10.0) Eosinophils (%) (Auto) % (0.0-3.0) Basophils (%) (Auto) % (0.0-2.0) Differential Total Cells Counted 100 Neutrophils % (Manual) 72 % (45-75) Lymphocytes % (Manual) 19 % (20-45) L Monocytes % (Manual) 6 % (1-10) Eosinophils % (Manual) 1 % (0-3) Basophils % (Manual) 0 % (0-2) Band Neutrophils 2 % (0-8) Nucleated Red Blood Cells 1 /100 WBC Platelet Estimate Adequate Platelet Morphology Normal Clumped Platelets 2+ Anisocytosis 1+ Prothrombin Time 13.4 SEC (9.30-11.50) H Prothromb Time International Ratio 1.3 (0.9-1.1) H Activated Partial Thromboplast Time 29 SEC (23-33) Sodium Level 180 mEQ/L (135-145) *H Potassium Level 4.1 mEQ/L (3.4-4.9) Chloride Level 137 mEQ/L (98-107) H Carbon Dioxide Level 25 mEQ/L (20-30) Anion Gap 18 (5-15) H Blood Urea Nitrogen 74 mg/dL (7-23) H Creatinine 1.6 mg/dL (0.7-1.2) H Estimat Glomerular Filtration Rate 43.7 mL/min (>60) Glucose Level 141 mg/dL (74-106) H Uric Acid 11.8 mg/dL (3.0-7.5) H Calcium Level 8.2 mg/dL (8.6-10.2) L Phosphorus Level 4.4 MG/DL (2.5-4.9) Magnesium Level 3.3 MG/DL (1.5-2.4) H Total Bilirubin 0.7 mg/dL (0.0-1.2) Gamma Glutamyl Transpeptidase 19 U/L (8-61) Aspartate Amino Transf (AST/SGOT) 52 U/L (5-40) H Alanine Aminotransferase (ALT/SGPT) 28 U/L (3-41) Alkaline Phosphatase 59 U/L (40-129) Total Creatine Kinase 1012 U/L (38-174) H C-Reactive Protein, Quantitative 3.8 mg/dL (< 0.5) H Pro-B-Type Natriuretic Peptide 6056 pg/mL (0-125) H Total Protein 7.8 g/dL (6.6-8.7) Albumin 3.3 g/dL (3.5-5.2) L Globulin 4.5 g/dL Albumin/Globulin Ratio 0.7 (1.0-2.7) L Arterial Blood pH 7.465 (7.350-7.450) Arterial Blood Partial Pressure CO2 40.5 mmHg (35.0-45.0) Arterial Blood Partial Pressure O2 99.2 mmHg (75.0-100.0) Arterial Blood HCO3 28.5 mmol/L (22.0-26.0) H Arterial Blood Oxygen Saturation 97.1 % (92.0-98.0) Arterial Blood Base Excess 4.4 Tony Test Positive Current Medications Medications (Trade) Dose Ordered Sig/Rafael Route PRN Reason Start Time Stop Time Status Last Admin Dose Admin Acetaminophen (Tylenol) 650 mg Q4H PRN ORAL T>100.5 10/19/16 14:00 11/18/16 13:59 Albuterol/ Ipratropium (DuoNeb 0.5-3(2.5)mg/3ml) 3 ml Q4H PRN HHN Shortness of Breath 10/19/16 14:00 10/24/16 13:59 Dextrose 1,000 ml @ 150 mls/hr Q6H40M IV 10/20/16 09:00 11/19/16 08:59 10/20/16 09:11 Dextrose STAT PRN IV Hypoglycemia 10/19/16 18:45 11/18/16 18:44 Heparin Sodium (Porcine) (Heparin 5000 units/ml) 5,000 units EVERY 12 HOURS SUBQ 10/19/16 21:00 11/18/16 20:59 10/20/16 09:32 Insulin Aspart (NovoLOG) Q6HR SUBQ 10/20/16 00:00 11/19/16 00:00 10/20/16 06:12 Lorazepam 2 mg 2 mg Q2H PRN IV For Anxiety 10/19/16 14:00 10/26/16 13:59 Morphine Sulfate (Morphine Sulfate) 4 mg Q4H PRN IVP Severe Pain (Pain Scale 7-10) 10/19/16 14:00 10/26/16 13:59 Norepinephrine Bitartrate/ Dextrose (Levophed/D5W) 254 ml @ 0 mls/hr Q24H IV 10/19/16 15:30 11/18/16 15:29 Ondansetron HCl (Zofran) 4 mg Q6H PRN IVP Nausea & Vomiting 10/19/16 14:00 11/18/16 13:59 Pantoprazole (Protonix) 40 mg Q12HR IVP 10/19/16 17:00 11/18/16 16:59 10/20/16 09:31 Piperacillin Sod/ Tazobactam Sod/ Dextrose (Zosyn/D5W) 110 ml @ 27.5 mls/hr EVERY 8 HOURS IVPB 10/19/16 22:00 10/24/16 21:59 10/20/16 06:10 Polyethylene Glycol (Miralax) 17 gm DAILYPRN PRN ORAL Constipation 10/19/16 14:00 11/18/16 13:59 Vancomycin HCl 1 ea 1 ea DAILY PRN MISC . 10/19/16 14:30 11/18/16 14:29 Vancomycin HCl/ Dextrose (Vancomycin/D5W) 275 ml @ 183.708 mls/hr Q24H IVPB 10/20/16 12:00 10/25/16 11:59 BELL PAREKH M.D. October 20, 2016 11:40
[2016-10-20] MEDS ORDERED: Vancomycin 1gm in D5W 275ml IVPB SCH (12:00)
[2016-10-20] MEDS ORDERED: Vancomycin 750mg/D5W 275ml IVPB SCH ×2 (12:00)
--- NOTE | 2016-10-20 12:05 | Diagnostic Imaging Report ---
Indication: Chest Pain Comparison: 10/19/16 A single view chest radiograph was obtained. Findings: [place] foreign body projected over the chest. Remain clear. Heart size is stable and within normal limits. Bones are osteopenic. There is a curvilinear focus of the left lung apex, which is likely a skinfold with mach effect. I doubt this is a pneumothorax. Suggest a followup confirmation. Impression: No significant change compared to the previous exam
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
--- NOTE | 2016-10-20 13:02 | Diagnostic Imaging Report ---
Indication: buttermaker venous access Findings: After the indications, procedure, risks, complications, and alternatives of the procedure were explained, written informed consent was obtained. The left upper extremity was prepped with alcohol. All elements of maximal sterile barrier technique were followed including usage of a cap, mask, sterile gown, sterile gloves, hand hygiene and a large sterile sheet. Sonographic evaluation of the upper extremity was performed demonstrating a patent and compressible brachial vein. Access was obtained under real-time ultrasound guidance and digital image was saved and archived. An .018 wire was introduced. Needle exchanged for a 5 [place] peel-away sheath. Measurements were obtained. A 5 [place] dual-lumen Power PICC line catheter was cut to 40 cm and introduced over the wire. Peel-away sheath and wire were removed.Catheter was secured to the skin using 2-0 Prolene suture. Both ports aspirate and flush easily. Post procedure chest x-ray demonstrates good position of the PICC line catheter within the SVC. Impression: Successful placement of an upper extremity PICC line catheter
[2016-10-20] MEDS ORDERED: Tubing IV Secondary IV ONE (14:05)
[2016-10-20] MEDS ORDERED: DuoNeb 0.5-3(2.5)mg/3ml neb HHN PRN (20:00)
[2016-10-20] MEDS ORDERED: LORazepam Inj 2mg/ml 1ml IV PRN (20:00)
[2016-10-20] MEDS ORDERED: Miralax 17gm pkt ORAL PRN (20:00)
[2016-10-20] MEDS ORDERED: Morphine Sulfate 4mg/ml Inj IVP PRN (20:00)
--- NOTE | 2016-10-20 20:31 | Wound Care Consultation ---
Wound Assessment Wound Assessment #1: Wound Present on Admission: Yes New Wound: No Status Change of Wound: No Wound Location Body Site Modif: mid Wound Location Body Site: sacral Wound Type: pressure ulcer Stephanie Test: Does not Stephanie Pressure Ulcer Stage: IV/unstageable Wound Thickness: Full Thickness Wound Length: 10.5 Wound Width: 11.5 Wound Depth: utd Percent of Wound [place]/Red: 20 Percent of Wound Purple/Maroon: 80 Wound Drainage Description: Serosanguineous Wound Drainage Amount: Scant Wound Drainage Odor: None/Absent Tissue Surrounding Wound: Macerated Wound General Appearance: Reddened Wound Assessment #2: Wound Number: #2 Wound Present on Admission: Yes New Wound: No Status Change of Wound: No Wound Location Body Site Modif: left Wound Location Body Site: trochanter Wound Type: pressure ulcer Stephanie Test: Does not Stephanie Pressure Ulcer Stage: deep tissue injury Wound Thickness: Full Thickness Wound Length: 8.0 Wound Width: 5.0 Wound Depth: utd Percent of Wound Purple/Maroon: 100 Wound Drainage Amount: None Wound Drainage Odor: None/Absent Tissue Surrounding Wound: Erythemic Wound General Appearance: Reddened Wound Assessment #3: Wound Number: #3 Wound Present on Admission: Yes New Wound: No Status Change of Wound: No Wound Location Body Site Modif: right, lateral Wound Location Body Site: metatarsal head - 5th Wound Type: pressure ulcer Stephanie Test: Does not Stephanie Pressure Ulcer Stage: deep tissue injury Wound Thickness: Full Thickness Wound Length: 5.0 Wound Width: 2.5 Wound Depth: utd Percent of Wound Black/Brown: 100 Wound Drainage Amount: None Wound Drainage Odor: None/Absent Tissue Surrounding Wound: Intact Wound General Appearance: Asymptomatic Wound Assessment #4: Wound Number: #4 Wound Present on Admission: Yes New Wound: No Status Change of Wound: No Wound Location Body Site Modif: right, mid, lateral Wound Location Body Site: foot Wound Type: pressure ulcer Stephanie Test: Does not Stephanie Pressure Ulcer Stage: deep tissue injury Wound Thickness: Full Thickness Wound Length: 2.0 Wound Width: 2.0 Wound Depth: utd Percent of Wound Purple/Maroon: 100 Wound Drainage Amount: None Wound Drainage Odor: None/Absent Tissue Surrounding Wound: Intact Wound General Appearance: Reddened Wound Assessment #5: Wound Number: #5 Wound Present on Admission: Yes New Wound: No Status Change of Wound: No Wound Location Body Site Modif: right Wound Location Body Site: heel Wound Type: pressure ulcer Stephanie Test: Does not Stephanie Pressure Ulcer Stage: deep tissue injury Wound Thickness: Full Thickness Wound Length: 3.5 Wound Width: 4.5 Wound Depth: utd Percent of Wound Purple/Maroon: 100 Wound Drainage Amount: None Wound Drainage Odor: None/Absent Tissue Surrounding Wound: Intact Wound General Appearance: Reddened Wound Assessment #6: Wound Number: #6 Wound Present on Admission: Yes New Wound: No Status Change of Wound: No Wound Location Body Site Modif: right Wound Location Body Site: trochanter Wound Type: pressure ulcer Stephanie Test: Does not Stephanie Pressure Ulcer Stage: III Wound Thickness: Full Thickness Wound Length: 1.5 Wound Width: 1.5 Wound Depth: 0.3 Percent of Wound [place]/Red: 100 Wound Drainage Description: Serosanguineous Wound Drainage Amount: Scant Wound Drainage Odor: None/Absent Tissue Surrounding Wound: 5.5 x5.5 daniel wound with purple DTI Wound General Appearance: Reddened Wound Comment #1 Sacral IV/unstageable pressure ulcer #2 Left trochanter DTI pressure ulcer #3 Right trochanter stage III pressure ulcer and large part of surrounding area with DTI purple in color #4 Right heel DTI pressure ulcer #5 Right lateral 5th metatarsal head DTI pressure ulcer brown in color #6 Right mid lateral foot DTI pressure ulcer Recommendation -Sacral area and right trochanter pressure ulcers Cleanse with saline, pat dry, apply Triad cream, cover with Bordered gauze daily and PRN soiled/dislodged -Local wound care per protocol for DTIs -Keep clean and dry -Turn and reposition -Optimize nutrition -Low air loss mattress -Offload both heels -Heel protector on both heels -Assess and f/u accordingly for any changes ROSALIO JUÁREZ RN October 20, 2016 20:31
[2016-10-21] MEDS: NovoLOG Insulin Flexpen SUBQ SCH ×4 (00:05→18:00)
[2016-10-21 00:15] VITALS: BP 98/71
[2016-10-21 04:00] VITALS: BP 100/67
[2016-10-21 05:48] LABS: BASOPHILS % (AUTO) 0.2 % (0.0-2.0); EOSINOPHILS % (AUTO) 0.5 % (0.0-3.0); LYMPHOCYTES % (AUTO) 12.5 % (20.0-45.0); MEAN CORPUSCULAR HEMOGLOBIN 23.6 PG (27.0-31.0); MEAN CORPUSCULAR HGB CONC 29.8 G/DL (32.0-36.0); MEAN CORPUSCULAR VOLUME 79 FL (80-99); MEAN PLATELET VOLUME 10.4 FL (6.5-10.1); MONOCYTES % (AUTO) 3.8 % (1.0-10.0); PLATELET COUNT 136 K/UL (150-450); RED BLOOD COUNT 4.71 M/UL (4.70-6.10); RED CELL DISTRIBUTION WIDTH 17.1 % (11.6-14.8); WHITE BLOOD COUNT 17.9 K/UL (4.8-10.8)
[2016-10-21 06:11] LABS: ALANINE AMINOTRANSFERASE 24 U/L (3-41); ALBUMIN/GLOBULIN RATIO 0.6 (1.0-2.7); ASPARTATE AMINO TRANSFERASE 34 U/L (5-40); CALCIUM 7.7 mg/dL (8.6-10.2); CARBON DIOXIDE 29 mEQ/L (20-30); CHLORIDE 126 mEQ/L (98-107); CREATININE 1.1 mg/dL (0.7-1.2); GLOMERULAR FILTRATION RATE > 60 mL/min (>60); HEMOLYSIS 0; MAGNESIUM 2.5 mg/dL (1.7-2.5); PHOSPHORUS 3.1 mg/dL (2.5-4.8); POTASSIUM 2.8 mEQ/L (3.4-4.9); TOTAL PROTEIN 6.6 g/dL (6.6-8.7)
[2016-10-21 06:17] LABS: ANION GAP 9 (5-15)
[2016-10-21] MEDS: Piperacillin/Tazobactam 3.375 GM in D5W 110 ML IVPB SCH ×3 (06:19→21:24)
[2016-10-21 06:21] LABS: URIC ACID 8.1 mg/dL (3.0-7.5)
[2016-10-21 06:54] LABS: SODIUM 164 mEQ/L (135-145)
[2016-10-21 07:56] LABS: ABG ALLEN TEST POSITIVE; ABG BASE EXCESS 4.2; ABG PCO2 38.1 mmHg (35.0-45.0)
[2016-10-21 08:00] VITALS: BP 94/63
[2016-10-21] MEDS: Heparin 5000 units/ml inj SUBQ SCH ×2 (09:00→21:26)
[2016-10-21] MEDS: Pantoprazole Inj IVP SCH ×2 (10:19→21:24)
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
--- NOTE | 2016-10-21 11:30 | Pulmonology Progress Note ---
Assessment/Plan Problems: (1) Sepsis (2) FLORIAN (acute kidney injury) (3) Altered level of consciousness (4) Hypernatremia Assessment/Plan improving IV fluids check electroltyes resume feeding dvt prophylaxis check NA all notes, meds reviewed. Subjective ROS Limited/Unobtainable: No Interval Events: awake, comfortable, not communicating Constitutional: Reports: no symptoms HEENT: Repors: no symptoms Allergies: Coded Allergies: FLUPHENAZINE (Unverified Allergy, Unknown, 10/19/16) HALOPERIDOL (Unverified Allergy, Unknown, 10/19/16) Objective Last 24 Hour Vital Signs Date Time Temp Pulse Resp B/P Pulse Ox O2 Delivery O2 Flow Rate FiO2 10/21/16 08:16 87 10/21/16 08:00 97.7 80 24 94/63 96 Nasal Cannula 10/21/16 04:00 90 10/21/16 04:00 98.1 80 19 100/67 96 Nasal Cannula 10/21/16 00:15 97.6 78 19 98/71 95 Nasal Cannula 10/21/16 00:00 81 10/20/16 20:00 82 10/20/16 20:00 97.7 82 18 94/65 95 Nasal Cannula 10/20/16 19:30 100 Nasal Cannula 2.0 28 10/20/16 19:30 82 20 Nasal Cannula 2.0 28 10/20/16 19:30 Nasal Cannula 2.0 28 10/20/16 19:00 81 30 103/59 99 Nasal Cannula 2.0 10/20/16 18:00 81 30 103/59 99 Nasal Cannula 2.0 10/20/16 17:00 78 27 102/57 98 Nasal Cannula 2.0 10/20/16 16:00 80 10/20/16 16:00 97.9 80 29 104/60 98 Nasal Cannula 2.0 10/20/16 15:00 84 32 104/60 97 Nasal Cannula 2.0 10/20/16 14:46 99/62 10/20/16 14:00 83 33 99/62 98 Nasal Cannula 2.0 10/20/16 13:00 82 34 105/61 100 Nasal Cannula 2.0 10/20/16 12:00 85 10/20/16 12:00 98.6 85 27 98/61 99 Nasal Cannula 2.0 Intake and Output 10/20/16 10/21/16 19:00 07:00 Intake Total 2340.708 ml 2060.0 ml Output Total 670 ml 700 ml Balance 1670.708 ml 1360.0 ml Intake Free Water 300 ml IV Total 2340.708 ml 1760.0 ml Output Urine Total 670 ml 700 ml # Voids 1 # Bowel Movements 3 1 General Appearance: WD/WN HEENT: normocephalic, atraumatic Respiratory/Chest: chest wall non-tender, lungs clear Cardiovascular: normal peripheral pulses, normal rate Abdomen: normal bowel sounds, soft, non tender Genitourinary: normal external genitalia Extremities: no cyanosis Skin: no rash 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, no motor/sensory deficits Lymphatic: no neck adenopathy Microbiology Date/Time Source Procedure Growth Status 10/19/16 15:30 Blood Blood Culture - Preliminary NO GROWTH AFTER 24 HOURS Resulted 10/19/16 15:15 Blood Blood Culture - Preliminary NO GROWTH AFTER 24 HOURS Resulted 10/20/16 01:30 Sputum Gram Stain Pending Resulted 10/20/16 01:30 Sputum Culture - Preliminary Staphylococcus Aureus Resulted 10/19/16 13:50 Nasal Nares MRSA Culture - Final Staphylococcus Aureus - Mrsa Complete 10/19/16 16:00 Stool Clostridium difficile Toxin Assay - Final Complete 10/19/16 14:00 Urine,Clean Catch Urine Culture - Preliminary Gram Negative Bacillus 1 Yeast Species Resulted 10/19/16 17:00 Sacral Wound Gram Stain - Final Resulted 10/19/16 17:00 Wound Culture - Preliminary Gram Negative Bacillus 1 Staphylococcus Aureus Resulted 10/19/16 13:50 Rectum VRE Culture - Final Enterococcus Faecium - Vre Complete Laboratory Tests 10/21/16 04:45: White Blood Count 17.9H, Red Blood Count 4.71, Hemoglobin 11.1L, Hematocrit 37.3L, Mean Corpuscular Volume 79L, Mean Corpuscular Hemoglobin 23.6L, Mean Corpuscular Hemoglobin Concent 29.8L, Red Cell Distribution Width 17.1H, Platelet Count 136L, Mean Platelet Volume 10.4H, Neutrophils (%) (Auto) 83.0H, Lymphocytes (%) (Auto) 12.5L, Monocytes (%) (Auto) 3.8, Eosinophils (%) (Auto) 0.5, Basophils (%) (Auto) 0.2, Sodium Level 164#*H, Potassium Level 2.8L, Chloride Level 126H, Carbon Dioxide Level 29, Anion Gap 9, Blood Urea Nitrogen 47#H, Creatinine 1.1, Estimat Glomerular Filtration Rate > 60, Glucose Level 124H, Uric Acid 8.1H, Calcium Level 7.7L, Phosphorus Level 3.1, Magnesium Level 2.5, Total Bilirubin 0.7, Gamma Glutamyl Transpeptidase 16, Aspartate Amino Transf (AST/SGOT) 34, Alanine Aminotransferase (ALT/SGPT) 24, Alkaline Phosphatase 62, Total Creatine Kinase 641H, Total Protein 6.6, Albumin 2.7L, Globulin 3.9, Albumin/Globulin Ratio 0.6L 10/21/16 07:49: Arterial Blood pH 7.481H, Arterial Blood Partial Pressure CO2 38.1, Arterial Blood Partial Pressure O2 102.7H, Arterial Blood HCO3 27.8H, Arterial Blood Oxygen Saturation 97.7, Arterial Blood Base Excess 4.2, Tony Test Positive Current Medications Medications (Trade) Dose Ordered Sig/Rafael Route PRN Reason Start Time Stop Time Status Last Admin Dose Admin Acetaminophen (Tylenol) 650 mg Q4H PRN ORAL T>100.5 10/20/16 20:00 11/19/16 19:59 Albuterol/ Ipratropium (DuoNeb 0.5-3(2.5)mg/3ml) 3 ml Q4H PRN HHN Shortness of Breath 10/20/16 20:00 10/25/16 19:59 Dextrose 1,000 ml @ 150 mls/hr Q6H40M IV 10/20/16 20:00 11/19/16 19:59 10/21/16 10:18 Dextrose (Dextrose 50%) STAT PRN IV Hypoglycemia 10/21/16 19:45 11/20/16 19:44 Heparin Sodium (Porcine) (Heparin 5000 units/ml) 5,000 units EVERY 12 HOURS SUBQ 10/20/16 21:00 11/19/16 20:59 10/21/16 09:00 Insulin Aspart (NovoLOG) Q6HR SUBQ 10/21/16 00:00 11/20/16 00:00 10/21/16 00:05 Lorazepam (Ativan 2mg/ml 1ml) 2 mg Q2H PRN IV For Anxiety 10/20/16 20:00 10/27/16 19:59 Morphine Sulfate (Morphine Sulfate) 4 mg Q4H PRN IVP Severe Pain (Pain Scale 7-10) 10/20/16 20:00 10/27/16 19:59 Ondansetron HCl (Zofran) 4 mg Q6H PRN IVP Nausea & Vomiting 10/20/16 20:00 11/19/16 19:59 Pantoprazole (Protonix) 40 mg Q12HR IVP 10/20/16 21:00 11/19/16 20:59 10/21/16 10:19 Piperacillin Sod/ Tazobactam Sod 3.375 gm/Dextrose 110 ml @ 27.5 mls/hr EVERY 8 HOURS IVPB 10/20/16 22:00 10/25/16 21:59 10/21/16 06:19 Polyethylene Glycol (Miralax) 17 gm DAILYPRN PRN ORAL Constipation 10/20/16 20:00 11/19/16 19:59 Potassium Chloride (KCl 20mEq/100ml Premix) 100 ml @ 50 mls/hr ONCE ONCE IVPB 10/21/16 10:00 10/21/16 11:59 10/21/16 10:19 Vancomycin HCl 1 ea 1 ea DAILY PRN MISC PRN RX PROTOCOL 10/21/16 09:00 11/20/16 08:59 Vancomycin HCl/ Dextrose (Vancomycin/D5W) 275 ml @ 183.708 mls/hr Q24H IVPB 10/21/16 12:00 10/26/16 11:59 BRIE PASCUAL October 21, 2016 11:30
[2016-10-21] MEDS ORDERED: Vancomycin 1 GM in D5W 275 ML IVPB SCH (12:00)
[2016-10-21 12:16] VITALS: BP 98/66
[2016-10-21 16:00] VITALS: BP 94/62
--- NOTE | 2016-10-21 18:07 | Infectious Diseases Prog Note ---
Assessment/Plan Assessment/Plan A: The patient is a 66-year-old male with UTI : GNR and UCx : ( Mariaelena : Colonizer ) Pneumonian SCx : Staph A Sepsis , SP Leukocytosis improving Respiratory distress Hypotension hx of Pneumonia (pneumococcus, pseudomonas and MRSA ( 09/2016 ) History of urinary tract infection recently PICC 5/2 COPD Diabetes Peptic ulcer disease Peripheral neuropathy Bipolar disorder PLAN: continue on Zosyn and vancomycin day # 3 Monitor CBC Monitor BMP Monitor cultures (blood, sputum, and urine.) Monitor chest x-ray Subjective Constitutional: Denies: anorexia, chills, drenching sweats, fatigue, fever, no symptoms, other Allergies: Coded Allergies: FLUPHENAZINE (Unverified Allergy, Unknown, 10/19/16) HALOPERIDOL (Unverified Allergy, Unknown, 10/19/16) Subjective afebrile Objective Vital Signs Last 24 Hour Vital Signs Date Time Temp Pulse Resp B/P Pulse Ox O2 Delivery O2 Flow Rate FiO2 10/21/16 16:11 87 10/21/16 12:16 97.3 84 22 98/66 99 Nasal Cannula 10/21/16 11:49 90 10/21/16 08:16 87 10/21/16 08:00 97.7 80 24 94/63 96 Nasal Cannula 10/21/16 04:00 90 10/21/16 04:00 98.1 80 19 100/67 96 Nasal Cannula 10/21/16 00:15 97.6 78 19 98/71 95 Nasal Cannula 10/21/16 00:00 81 10/20/16 20:00 82 10/20/16 20:00 97.7 82 18 94/65 95 Nasal Cannula 10/20/16 19:30 100 Nasal Cannula 2.0 28 10/20/16 19:30 82 20 Nasal Cannula 2.0 28 10/20/16 19:30 Nasal Cannula 2.0 28 10/20/16 19:00 81 30 103/59 99 Nasal Cannula 2.0 Height (Feet): 6 Height (Inches): 6.00 Weight (Pounds): 138 Respiratory/Chest: no respiratory distress Cardiovascular: no gallop/murmur Abdomen: non distended Microbiology Date/Time Source Procedure Growth Status 10/19/16 15:30 Blood Blood Culture - Preliminary NO GROWTH AFTER 24 HOURS Resulted 10/19/16 15:15 Blood Blood Culture - Preliminary NO GROWTH AFTER 24 HOURS Resulted 10/20/16 01:30 Sputum Gram Stain - Final Resulted 10/20/16 01:30 Sputum Culture - Preliminary Staphylococcus Aureus Resulted 10/19/16 13:50 Nasal Nares MRSA Culture - Final Staphylococcus Aureus - Mrsa Complete 10/19/16 16:00 Stool Clostridium difficile Toxin Assay - Final Complete 10/19/16 14:00 Urine,Clean Catch Urine Culture - Preliminary Gram Negative Bacillus 1 Yeast Species Resulted 10/19/16 17:00 Sacral Wound Gram Stain - Final Resulted 10/19/16 17:00 Wound Culture - Preliminary Gram Negative Bacillus 1 Staphylococcus Aureus Resulted 10/19/16 13:50 Rectum VRE Culture - Final Enterococcus Faecium - Vre Complete Laboratory Tests Test 10/21/16 04:45 10/21/16 07:49 White Blood Count 17.9 K/UL (4.8-10.8) H Red Blood Count 4.71 M/UL (4.70-6.10) Hemoglobin 11.1 G/DL (14.2-18.0) L Hematocrit 37.3 % (42.0-52.0) L Mean Corpuscular Volume 79 FL (80-99) L Mean Corpuscular Hemoglobin 23.6 PG (27.0-31.0) L Mean Corpuscular Hemoglobin Concent 29.8 G/DL (32.0-36.0) L Red Cell Distribution Width 17.1 % (11.6-14.8) H Platelet Count 136 K/UL (150-450) L Mean Platelet Volume 10.4 FL (6.5-10.1) H Neutrophils (%) (Auto) 83.0 % (45.0-75.0) H Lymphocytes (%) (Auto) 12.5 % (20.0-45.0) L Monocytes (%) (Auto) 3.8 % (1.0-10.0) Eosinophils (%) (Auto) 0.5 % (0.0-3.0) Basophils (%) (Auto) 0.2 % (0.0-2.0) Sodium Level 164 mEQ/L (135-145) #*H Potassium Level 2.8 mEQ/L (3.4-4.9) L Chloride Level 126 mEQ/L (98-107) H Carbon Dioxide Level 29 mEQ/L (20-30) Anion Gap 9 (5-15) Blood Urea Nitrogen 47 mg/dL (7-23) #H Creatinine 1.1 mg/dL (0.7-1.2) Estimat Glomerular Filtration Rate > 60 mL/min (>60) Glucose Level 124 mg/dL (74-106) H Uric Acid 8.1 mg/dL (3.0-7.5) H Calcium Level 7.7 mg/dL (8.6-10.2) L Phosphorus Level 3.1 mg/dL (2.5-4.8) Magnesium Level 2.5 mg/dL (1.7-2.5) Total Bilirubin 0.7 mg/dL (0.0-1.2) Gamma Glutamyl Transpeptidase 16 U/L (8-61) Aspartate Amino Transf (AST/SGOT) 34 U/L (5-40) Alanine Aminotransferase (ALT/SGPT) 24 U/L (3-41) Alkaline Phosphatase 62 U/L (40-129) Total Creatine Kinase 641 U/L (38-174) H Total Protein 6.6 g/dL (6.6-8.7) Albumin 2.7 g/dL (3.5-5.2) L Globulin 3.9 g/dL Albumin/Globulin Ratio 0.6 (1.0-2.7) L Arterial Blood pH 7.481 (7.350-7.450) Arterial Blood Partial Pressure CO2 38.1 mmHg (35.0-45.0) Arterial Blood Partial Pressure O2 102.7 mmHg (75.0-100.0) H Arterial Blood HCO3 27.8 mmol/L (22.0-26.0) H Arterial Blood Oxygen Saturation 97.7 % (92.0-98.0) Arterial Blood Base Excess 4.2 Tony Test Positive Current Medications Medications (Trade) Dose Ordered Sig/Rafael Route PRN Reason Start Time Stop Time Status Last Admin Dose Admin Acetaminophen (Tylenol) 650 mg Q4H PRN ORAL T>100.5 10/20/16 20:00 11/19/16 19:59 Albuterol/ Ipratropium (DuoNeb 0.5-3(2.5)mg/3ml) 3 ml Q4H PRN HHN Shortness of Breath 10/20/16 20:00 10/25/16 19:59 Dextrose 1,000 ml @ 150 mls/hr Q6H40M IV 10/20/16 20:00 11/19/16 19:59 10/21/16 16:44 Dextrose (Dextrose 50%) STAT PRN IV Hypoglycemia 10/21/16 19:45 11/20/16 19:44 Heparin Sodium (Porcine) (Heparin 5000 units/ml) 5,000 units EVERY 12 HOURS SUBQ 10/20/16 21:00 11/19/16 20:59 10/21/16 09:00 Insulin Aspart (NovoLOG) Q6HR SUBQ 10/21/16 00:00 11/20/16 00:00 10/21/16 00:05 Lorazepam (Ativan 2mg/ml 1ml) 2 mg Q2H PRN IV For Anxiety 10/20/16 20:00 10/27/16 19:59 Morphine Sulfate (Morphine Sulfate) 4 mg Q4H PRN IVP Severe Pain (Pain Scale 7-10) 10/20/16 20:00 10/27/16 19:59 10/21/16 17:06 Ondansetron HCl (Zofran) 4 mg Q6H PRN IVP Nausea & Vomiting 10/20/16 20:00 11/19/16 19:59 Pantoprazole (Protonix) 40 mg Q12HR IVP 10/20/16 21:00 11/19/16 20:59 10/21/16 10:19 Piperacillin Sod/ Tazobactam Sod 3.375 gm/Dextrose 110 ml @ 27.5 mls/hr EVERY 8 HOURS IVPB 10/20/16 22:00 10/25/16 21:59 10/21/16 14:51 Polyethylene Glycol (Miralax) 17 gm DAILYPRN PRN ORAL Constipation 10/20/16 20:00 11/19/16 19:59 10/21/16 17:06 Vancomycin HCl (Vanco rx to dose) 1 ea DAILY PRN MISC PRN RX PROTOCOL 10/21/16 09:00 11/20/16 08:59 Vancomycin HCl/ Dextrose (Vancomycin/D5W) 275 ml @ 183.708 mls/hr Q24H IVPB 10/21/16 12:00 10/26/16 11:59 10/21/16 12:23 BELL PAREKH M.D. October 21, 2016 18:07
[2016-10-21 20:00] VITALS: BP 99/61
[2016-10-21] MEDS ORDERED: 1/2 NS 1000ml IV ONE (20:04)
[2016-10-22] VITALS: BP 95/59
[2016-10-22] MEDS ORDERED: NovoLOG Insulin Flexpen SUBQ SCH
[2016-10-22] MEDS ORDERED: LORazepam Inj 2mg/ml 1ml IV PRN ×2 (02:00)
[2016-10-22 04:00] VITALS: BP_SYST 106; BP_SYST 98; BP_DIAS 62
[2016-10-22] MEDS ORDERED: DuoNeb 0.5-3(2.5)mg/3ml neb HHN PRN ×2 (04:00)
[2016-10-22] MEDS ORDERED: Morphine Sulfate 4mg/ml Inj IVP PRN ×2 (04:00)
[2016-10-22 05:10] LABS: BASOPHILS % (AUTO) 0.2 % (0.0-2.0); EOSINOPHILS % (AUTO) 2.5 % (0.0-3.0); LYMPHOCYTES % (AUTO) 16.4 % (20.0-45.0); MEAN CORPUSCULAR HGB CONC 30.9 G/DL (32.0-36.0); MEAN CORPUSCULAR VOLUME 77 FL (80-99); MEAN PLATELET VOLUME 10.1 FL (6.5-10.1); MONOCYTES % (AUTO) 3.6 % (1.0-10.0); NEUTROPHILS % (AUTO) 77.4 % (45.0-75.0); PLATELET COUNT 112 K/UL (150-450); RED BLOOD COUNT 4.13 M/UL (4.70-6.10); RED CELL DISTRIBUTION WIDTH 16.5 % (11.6-14.8)
[2016-10-22 05:35] LABS: ALANINE AMINOTRANSFERASE 24 U/L (3-41); ALBUMIN/GLOBULIN RATIO 0.7 (1.0-2.7); ASPARTATE AMINO TRANSFERASE 34 U/L (5-40); CALCIUM 7.5 mg/dL (8.6-10.2); CARBON DIOXIDE 29 mEQ/L (20-30); CHLORIDE 108 mEQ/L (98-107); CREATININE 0.8 mg/dL (0.7-1.2); CRP QUANT 2.6 mg/dL (< 0.5); GLOMERULAR FILTRATION RATE > 60 mL/min (>60); HEMOLYSIS 1; MAGNESIUM 2.1 mg/dL (1.7-2.5); SODIUM 148 mEQ/L (135-145); TOTAL PROTEIN 5.9 g/dL (6.6-8.7); URIC ACID 4.3 mg/dL (3.0-7.5)
[2016-10-22] MEDS: Piperacillin/Tazobactam 3.375 GM in D5W 110 ML IVPB SCH ×3 (05:51→21:10)
[2016-10-22 05:52] LABS: ANION GAP 11 (5-15); POTASSIUM 2.8 mEQ/L (3.4-4.9)
[2016-10-22] MEDS: NovoLOG Insulin Flexpen SUBQ SCH ×4 (05:52→18:00)
[2016-10-22] MEDS ORDERED: Piperacillin/Tazobactam 3.375 GM in D5W 110 ML IVPB SCH (06:00)
[2016-10-22 08:15] VITALS: BP 88/53
[2016-10-22] MEDS ORDERED: Heparin 5000 units/ml inj SUBQ SCH (09:00)
[2016-10-22] MEDS ORDERED: Pantoprazole Inj IVP SCH (09:00)
[2016-10-22] MEDS: Heparin 5000 units/ml inj SUBQ SCH ×2 (09:00→21:00)
[2016-10-22] MEDS: Pantoprazole Inj IVP SCH ×2 (09:11→21:10)
[2016-10-22] MEDS ORDERED: Vancomycin 1 GM in D5W 275 ML IVPB SCH (12:00)
[2016-10-22 12:08] VITALS: BP 93/56
[2016-10-22] MEDS: Vancomycin 1 GM in D5W 275 ML IVPB SCH (12:30)
[2016-10-22] MEDS ORDERED: KCl 10% 40mEq/30ml liquid GT ONE ×2 (13:45→17:45)
--- NOTE | 2016-10-22 14:10 | General Progress Note ---
Assessment/Plan Status: stable Status Narrative K low Assessment/Plan status: Septic Shock, recovering Acute renal failure, Cr lower, Na lower Free water deficit h/o COPD , DM , Psych disease Free water - D5W down to 50 cc hour antibiotics Hemodynamic support Keep the BS in check Avoid nephrotoxics per orders Subjective ROS Limited/Unobtainable: No Constitutional: Reports: malaise Allergies: Coded Allergies: FLUPHENAZINE (Unverified Allergy, Unknown, 10/19/16) HALOPERIDOL (Unverified Allergy, Unknown, 10/19/16) Objective Last 24 Hour Vital Signs Date Time Temp Pulse Resp B/P Pulse Ox O2 Delivery O2 Flow Rate FiO2 10/22/16 12:08 98.2 78 24 93/56 96 Nasal Cannula 2.0 10/22/16 08:15 97.7 80 21 88/53 97 Nasal Cannula 2.0 10/22/16 07:49 Nasal Cannula 2.0 28 10/22/16 07:49 97 Nasal Cannula 2.0 28 10/22/16 07:49 80 18 Nasal Cannula 2.0 28 10/22/16 04:00 98.8 69 20 98/62 95 Nasal Cannula 2.0 10/22/16 00:00 98.1 78 20 95/59 99 Nasal Cannula 10/21/16 20:00 98.6 77 20 99/61 99 Nasal Cannula 10/21/16 20:00 76 10/21/16 16:11 87 10/21/16 16:00 97.0 82 22 94/62 99 Nasal Cannula Intake and Output 10/21/16 10/22/16 19:00 07:00 Intake Total 2270 ml 1980.0 ml Output Total 650 ml 450 ml Balance 1620 ml 1530.0 ml Intake Free Water 200 ml 100 ml IV Total 1650 ml 1460.0 ml Tube Feeding 420 ml 420 ml Output Urine Total 650 ml 450 ml # Bowel Movements 1 Laboratory Tests 10/22/16 05:00: White Blood Count 13.0H, Red Blood Count 4.13L, Hemoglobin 9.9L, Hematocrit 32.0L, Mean Corpuscular Volume 77L, Mean Corpuscular Hemoglobin 24.0L, Mean Corpuscular Hemoglobin Concent 30.9L, Red Cell Distribution Width 16.5H, Platelet Count 112L, Mean Platelet Volume 10.1, Neutrophils (%) (Auto) 77.4H, Lymphocytes (%) (Auto) 16.4L, Monocytes (%) (Auto) 3.6, Eosinophils (%) (Auto) 2.5, Basophils (%) (Auto) 0.2, Sodium Level 148H, Potassium Level 2.8L, Chloride Level 108H, Carbon Dioxide Level 29, Anion Gap 11, Blood Urea Nitrogen 25H, Creatinine 0.8, Estimat Glomerular Filtration Rate > 60, Glucose Level 148H , Uric Acid 4.3, Calcium Level 7.5L, Phosphorus Level 3.0, Magnesium Level 2.1, Total Bilirubin 0.4, Gamma Glutamyl Transpeptidase 17, Aspartate Amino Transf ( AST/SGOT) 34, Alanine Aminotransferase (ALT/SGPT) 24, Alkaline Phosphatase 52, C -Reactive Protein, Quantitative 2.6H, Pro-B-Type Natriuretic Peptide 1693H, Total Protein 5.9L, Albumin 2.5L, Globulin 3.4, Albumin/Globulin Ratio 0.7L Height (Feet): 6 Height (Inches): 6.00 Weight (Pounds): 138 General Appearance: no apparent distress Objective other PE not changed KEV FELIX October 22, 2016 14:10
[2016-10-22 15:36] VITALS: BP 94/62
--- NOTE | 2016-10-22 15:50 | Pulmonology Progress Note ---
Assessment/Plan Problems: (1) Sepsis (2) FLORIAN (acute kidney injury) (3) Altered level of consciousness (4) Hypernatremia Assessment/Plan wbc decreasing K supplement improving IV fluids check electrolyes resume feeding dvt prophylaxis check NA all notes, meds reviewed. Subjective ROS Limited/Unobtainable: No Constitutional: Reports: no symptoms HEENT: Repors: no symptoms Allergies: Coded Allergies: FLUPHENAZINE (Unverified Allergy, Unknown, 10/19/16) HALOPERIDOL (Unverified Allergy, Unknown, 10/19/16) Objective Last 24 Hour Vital Signs Date Time Temp Pulse Resp B/P Pulse Ox O2 Delivery O2 Flow Rate FiO2 10/22/16 15:36 97.6 82 23 94/62 97 Nasal Cannula 2.0 10/22/16 12:08 98.2 78 24 93/56 96 Nasal Cannula 2.0 10/22/16 08:15 97.7 80 21 88/53 97 Nasal Cannula 2.0 10/22/16 07:49 Nasal Cannula 2.0 28 10/22/16 07:49 97 Nasal Cannula 2.0 28 10/22/16 07:49 80 18 Nasal Cannula 2.0 28 10/22/16 04:00 98.8 69 20 98/62 95 Nasal Cannula 2.0 10/22/16 00:00 98.1 78 20 95/59 99 Nasal Cannula 10/21/16 20:00 98.6 77 20 99/61 99 Nasal Cannula 10/21/16 20:00 76 10/21/16 16:11 87 10/21/16 16:00 97.0 82 22 94/62 99 Nasal Cannula Intake and Output 10/21/16 10/22/16 19:00 07:00 Intake Total 2270 ml 1980.0 ml Output Total 650 ml 450 ml Balance 1620 ml 1530.0 ml Intake Free Water 200 ml 100 ml IV Total 1650 ml 1460.0 ml Tube Feeding 420 ml 420 ml Output Urine Total 650 ml 450 ml # Bowel Movements 1 Objective General Appearance: WD/WN HEENT: normocephalic, atraumatic Respiratory/Chest: chest wall non-tender, lungs clear Cardiovascular: normal peripheral pulses, normal rate Abdomen: normal bowel sounds, soft, non tender Genitourinary: normal external genitalia Extremities: no cyanosis Skin: no rash 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, no motor/sensory deficits Lymphatic: no neck adenopathy General Appearance: no acute distress Microbiology Date/Time Source Procedure Growth Status 10/20/16 01:30 Sputum Gram Stain - Final Complete 10/20/16 01:30 Sputum Culture - Final Staphylococcus Aureus - Mrsa Usual Upper Respiratory Amberly Complete 10/19/16 16:00 Stool Clostridium difficile Toxin Assay - Final Complete 10/19/16 17:00 Sacral Wound Gram Stain - Final Resulted 10/19/16 17:00 Wound Culture - Preliminary Acinetobacter Baumannii Complx Staphylococcus Aureus - Mrsa Resulted Laboratory Tests 10/22/16 05:00: White Blood Count 13.0H, Red Blood Count 4.13L, Hemoglobin 9.9L, Hematocrit 32.0L, Mean Corpuscular Volume 77L, Mean Corpuscular Hemoglobin 24.0L, Mean Corpuscular Hemoglobin Concent 30.9L, Red Cell Distribution Width 16.5H, Platelet Count 112L, Mean Platelet Volume 10.1, Neutrophils (%) (Auto) 77.4H, Lymphocytes (%) (Auto) 16.4L, Monocytes (%) (Auto) 3.6, Eosinophils (%) (Auto) 2.5, Basophils (%) (Auto) 0.2, Sodium Level 148H, Potassium Level 2.8L, Chloride Level 108H, Carbon Dioxide Level 29, Anion Gap 11, Blood Urea Nitrogen 25H, Creatinine 0.8, Estimat Glomerular Filtration Rate > 60, Glucose Level 148H , Uric Acid 4.3, Calcium Level 7.5L, Phosphorus Level 3.0, Magnesium Level 2.1, Total Bilirubin 0.4, Gamma Glutamyl Transpeptidase 17, Aspartate Amino Transf ( AST/SGOT) 34, Alanine Aminotransferase (ALT/SGPT) 24, Alkaline Phosphatase 52, C -Reactive Protein, Quantitative 2.6H, Pro-B-Type Natriuretic Peptide 1693H, Total Protein 5.9L, Albumin 2.5L, Globulin 3.4, Albumin/Globulin Ratio 0.7L Current Medications Medications (Trade) Dose Ordered Sig/Rafael Route PRN Reason Start Time Stop Time Status Last Admin Dose Admin Acetaminophen (Tylenol) 650 mg Q4H PRN ORAL T>100.5 10/22/16 04:00 11/21/16 03:59 Albuterol/ Ipratropium (DuoNeb 0.5-3(2.5)mg/3ml) 3 ml Q4H PRN HHN Shortness of Breath 10/22/16 04:00 10/27/16 03:59 Dextrose (D5W 1000ml) 1,000 ml @ 50 mls/hr Q20H IV 10/22/16 14:30 11/21/16 14:29 Dextrose (Dextrose 50%) STAT PRN IV Hypoglycemia 10/22/16 19:45 11/21/16 19:44 Heparin Sodium (Porcine) (Heparin 5000 units/ml) 5,000 units EVERY 12 HOURS SUBQ 10/22/16 09:00 11/21/16 08:59 Insulin Aspart (NovoLOG) Q6HR SUBQ 10/22/16 00:00 11/21/16 00:00 10/22/16 12:29 Lorazepam (Ativan 2mg/ml 1ml) 2 mg Q2H PRN IV For Anxiety 10/22/16 02:00 10/29/16 01:59 Morphine Sulfate (Morphine Sulfate) 4 mg Q4H PRN IVP Severe Pain (Pain Scale 7-10) 10/22/16 04:00 10/29/16 03:59 Ondansetron HCl (Zofran) 4 mg Q6H PRN IVP Nausea & Vomiting 10/22/16 02:00 11/21/16 01:59 Pantoprazole (Protonix) 40 mg Q12HR IVP 10/22/16 09:00 11/21/16 08:59 10/22/16 09:11 Piperacillin Sod/ Tazobactam Sod 3.375 gm/Dextrose 110 ml @ 27.5 mls/hr EVERY 8 HOURS IVPB 10/22/16 06:00 10/27/16 05:59 10/22/16 14:04 Polyethylene Glycol (Miralax) 17 gm DAILYPRN PRN ORAL Constipation 10/22/16 20:00 11/21/16 19:59 Potassium Chloride 40 meq 40 meq ONCE ONCE GT 10/22/16 17:45 10/22/16 17:46 Vancomycin HCl (Vanco rx to dose) 1 ea DAILY PRN MISC PRN RX PROTOCOL 10/22/16 09:00 11/21/16 08:59 Vancomycin HCl/ Dextrose (Vancomycin/D5W) 275 ml @ 183.708 mls/hr Q24H IVPB 10/22/16 12:00 10/27/16 11:59 10/22/16 12:30 BRIE PASCUAL October 22, 2016 15:50
[2016-10-22 20:00] VITALS: BP 86/55
[2016-10-22] MEDS ORDERED: Miralax 17gm pkt ORAL PRN ×2 (20:00)
[2016-10-23] VITALS: BP 86/60
[2016-10-23] MEDS: NovoLOG Insulin Flexpen SUBQ SCH ×5 (00:09→23:34)
[2016-10-23 04:00] VITALS: BP 95/59
[2016-10-23] MEDS: Piperacillin/Tazobactam 3.375 GM in D5W 110 ML IVPB SCH ×3 (05:20→21:44)
[2016-10-23 06:03] LABS: BASOPHILS % (AUTO) 0.2 % (0.0-2.0); EOSINOPHILS % (AUTO) 2.8 % (0.0-3.0); LYMPHOCYTES % (AUTO) 18.6 % (20.0-45.0); MEAN CORPUSCULAR HEMOGLOBIN 23.4 PG (27.0-31.0); MEAN CORPUSCULAR HGB CONC 30.4 G/DL (32.0-36.0); MEAN CORPUSCULAR VOLUME 77 FL (80-99); MEAN PLATELET VOLUME 10.2 FL (6.5-10.1); MONOCYTES % (AUTO) 5.5 % (1.0-10.0); NEUTROPHILS % (AUTO) 72.8 % (45.0-75.0); PLATELET COUNT 122 K/UL (150-450); RED BLOOD COUNT 4.36 M/UL (4.70-6.10); RED CELL DISTRIBUTION WIDTH 16.4 % (11.6-14.8); WHITE BLOOD COUNT 12.1 K/UL (4.8-10.8)
[2016-10-23 06:07] LABS: ALANINE AMINOTRANSFERASE 23 U/L (3-41); ALBUMIN/GLOBULIN RATIO 0.7 (1.0-2.7); ANION GAP 9 (5-15); ASPARTATE AMINO TRANSFERASE 28 U/L (5-40); CALCIUM 8.2 mg/dL (8.6-10.2); CARBON DIOXIDE 32 mEQ/L (20-30); CHLORIDE 110 mEQ/L (98-107); CREATININE 0.7 mg/dL (0.7-1.2); GLOMERULAR FILTRATION RATE > 60 mL/min (>60); HEMOLYSIS 2; MAGNESIUM 2.1 mg/dL (1.7-2.5); PHOSPHORUS 3.2 mg/dL (2.5-4.8); POTASSIUM 3.7 mEQ/L (3.4-4.9); SODIUM 151 mEQ/L (135-145); TOTAL PROTEIN 6.1 g/dL (6.6-8.7)
[2016-10-23 07:34] VITALS: BP 82/50
[2016-10-23] MEDS: Heparin 5000 units/ml inj SUBQ SCH (08:05)
[2016-10-23] MEDS: Pantoprazole Inj IVP SCH (08:17)
[2016-10-23 11:18] VITALS: BP 92/58
[2016-10-23] MEDS: Vancomycin 1 GM in D5W 275 ML IVPB SCH (12:09)
--- NOTE | 2016-10-23 13:23 | General Progress Note ---
Assessment/Plan Status: stable Status Narrative low BP Assessment/Plan status: Septic Shock, recovering Acute renal failure, Cr lower, Na lower Free water deficit h/o COPD , DM , Psych disease Free water - D5W Midodrine for low BP antibiotics Hemodynamic support Keep the BS in check Avoid nephrotoxics per orders Subjective ROS Limited/Unobtainable: No Constitutional: Reports: malaise Allergies: Coded Allergies: FLUPHENAZINE (Unverified Allergy, Unknown, 10/19/16) HALOPERIDOL (Unverified Allergy, Unknown, 10/19/16) Objective Last 24 Hour Vital Signs Date Time Temp Pulse Resp B/P Pulse Ox O2 Delivery O2 Flow Rate FiO2 10/23/16 11:18 97.7 72 14 92/58 100 Nasal Cannula 10/23/16 09:47 Nasal Cannula 2.0 10/23/16 09:47 75 18 Nasal Cannula 2.0 10/23/16 09:47 96 Nasal Cannula 2.0 10/23/16 07:34 97.7 74 14 82/50 98 Nasal Cannula 10/23/16 04:00 97.5 71 20 95/59 99 Nasal Cannula 2.0 10/23/16 00:00 97.7 79 20 86/60 97 Nasal Cannula 2.0 10/22/16 20:00 99.1 80 20 86/55 98 Nasal Cannula 2.0 10/22/16 19:28 83 18 Nasal Cannula 2.0 10/22/16 19:28 Nasal Cannula 2.0 28 10/22/16 19:28 98 Nasal Cannula 2.0 10/22/16 15:36 97.6 82 23 94/62 97 Nasal Cannula 2.0 Intake and Output 10/22/16 10/23/16 19:00 07:00 Intake Total 1887.500 ml 1752.5 ml Output Total 1200 ml 2200 ml Balance 687.500 ml -447.5 ml Intake Free Water 200 ml 200 ml IV Total 917.500 ml 712.5 ml Tube Feeding 770 ml 840 ml Output Urine Total 1200 ml 2200 ml # Bowel Movements 1 Laboratory Tests 10/23/16 05:30: White Blood Count 12.1H, Red Blood Count 4.36L, Hemoglobin 10.2L, Hematocrit 33.5L, Mean Corpuscular Volume 77L, Mean Corpuscular Hemoglobin 23.4L, Mean Corpuscular Hemoglobin Concent 30.4L, Red Cell Distribution Width 16.4H, Platelet Count 122L, Mean Platelet Volume 10.2H, Neutrophils (%) (Auto) 72.8, Lymphocytes (%) (Auto) 18.6L, Monocytes (%) (Auto) 5.5, Eosinophils (%) (Auto) 2.8, Basophils (%) (Auto) 0.2, Sodium Level 151H, Potassium Level 3.7, Chloride Level 110H, Carbon Dioxide Level 32H, Anion Gap 9, Blood Urea Nitrogen 14, Creatinine 0.7, Estimat Glomerular Filtration Rate > 60, Glucose Level 121H, Calcium Level 8.2L, Phosphorus Level 3.2, Magnesium Level 2.1, Total Bilirubin 0.3, Aspartate Amino Transf (AST/SGOT) 28, Alanine Aminotransferase (ALT/SGPT) 23, Alkaline Phosphatase 49, Total Protein 6.1L, Albumin 2.6L, Globulin 3.5, Albumin/Globulin Ratio 0.7L 10/23/16 11:15: Vancomycin Level Trough 7.0 Height (Feet): 6 Height (Inches): 6.00 Weight (Pounds): 138 General Appearance: no apparent distress Objective other PE not changed KEV FELIX October 23, 2016 13:23
[2016-10-23 15:31] VITALS: BP 102/62
[2016-10-23] MEDS ORDERED: NS 275ml ONE ×2 (15:41→16:01)
[2016-10-23] MEDS ORDERED: Sterile Water Irrig 1000ml IRRIG ONE ×2 (15:41→16:01)
[2016-10-23] MEDS ORDERED: Tubing IV Secondary IV ONE (16:01)
[2016-10-23] MEDS: Midodrine 10mg tab GT SCH (18:07)
[2016-10-23 20:00] VITALS: BP 93/60
--- NOTE | 2016-10-23 20:16 | Pulmonology Progress Note ---
Assessment/Plan Problems: (1) Sepsis (2) FLORIAN (acute kidney injury) (3) Altered level of consciousness (4) Hypernatremia Assessment/Plan wbc decreasing but still elevated K supplement improving IV fluids check electrolyes tolerating feeding dvt prophylaxis check NA all notes, meds reviewed. Subjective ROS Limited/Unobtainable: No Constitutional: Reports: no symptoms HEENT: Repors: no symptoms Respiratory: Reports: no symptoms Allergies: Coded Allergies: FLUPHENAZINE (Unverified Allergy, Unknown, 10/19/16) HALOPERIDOL (Unverified Allergy, Unknown, 10/19/16) Objective Last 24 Hour Vital Signs Date Time Temp Pulse Resp B/P Pulse Ox O2 Delivery O2 Flow Rate FiO2 10/23/16 20:00 98.8 78 20 93/60 96 Room Air 10/23/16 15:31 97.5 77 16 102/62 96 Room Air 10/23/16 11:18 97.7 72 14 92/58 100 Nasal Cannula 10/23/16 09:47 Nasal Cannula 2.0 28 10/23/16 09:47 75 18 Nasal Cannula 2.0 28 10/23/16 09:47 96 Nasal Cannula 2.0 28 10/23/16 07:34 97.7 74 14 82/50 98 Nasal Cannula 10/23/16 04:00 97.5 71 20 95/59 99 Nasal Cannula 2.0 10/23/16 00:00 97.7 79 20 86/60 97 Nasal Cannula 2.0 Intake and Output 10/22/16 10/23/16 19:00 07:00 Intake Total 1887.500 ml 1752.5 ml Output Total 1200 ml 2200 ml Balance 687.500 ml -447.5 ml Intake Free Water 200 ml 200 ml IV Total 917.500 ml 712.5 ml Tube Feeding 770 ml 840 ml Output Urine Total 1200 ml 2200 ml # Bowel Movements 1 Objective General Appearance: WD/WN HEENT: normocephalic, atraumatic Respiratory/Chest: chest wall non-tender, lungs clear Cardiovascular: normal peripheral pulses, normal rate Abdomen: normal bowel sounds, soft, non tender Genitourinary: normal external genitalia Extremities: no cyanosis Skin: no rash 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, no motor/sensory deficits Lymphatic: no neck adenopathy Laboratory Tests 10/23/16 05:30: White Blood Count 12.1H, Red Blood Count 4.36L, Hemoglobin 10.2L, Hematocrit 33.5L, Mean Corpuscular Volume 77L, Mean Corpuscular Hemoglobin 23.4L, Mean Corpuscular Hemoglobin Concent 30.4L, Red Cell Distribution Width 16.4H, Platelet Count 122L, Mean Platelet Volume 10.2H, Neutrophils (%) (Auto) 72.8, Lymphocytes (%) (Auto) 18.6L, Monocytes (%) (Auto) 5.5, Eosinophils (%) (Auto) 2.8, Basophils (%) (Auto) 0.2, Sodium Level 151H, Potassium Level 3.7, Chloride Level 110H, Carbon Dioxide Level 32H, Anion Gap 9, Blood Urea Nitrogen 14, Creatinine 0.7, Estimat Glomerular Filtration Rate > 60, Glucose Level 121H, Calcium Level 8.2L, Phosphorus Level 3.2, Magnesium Level 2.1, Total Bilirubin 0.3, Aspartate Amino Transf (AST/SGOT) 28, Alanine Aminotransferase (ALT/SGPT) 23, Alkaline Phosphatase 49, Total Protein 6.1L, Albumin 2.6L, Globulin 3.5, Albumin/Globulin Ratio 0.7L 10/23/16 11:15: Vancomycin Level Trough 7.0 Current Medications Medications (Trade) Dose Ordered Sig/Rafael Route PRN Reason Start Time Stop Time Status Last Admin Dose Admin Acetaminophen (Tylenol) 650 mg Q4H PRN ORAL T>100.5 10/22/16 04:00 11/21/16 03:59 Albuterol/ Ipratropium (DuoNeb 0.5-3(2.5)mg/3ml) 3 ml Q4H PRN HHN Shortness of Breath 10/22/16 04:00 10/27/16 03:59 Dextrose (Dextrose 50%) STAT PRN IV Hypoglycemia 10/22/16 19:45 11/21/16 19:44 Heparin Sodium (Porcine) (Heparin 5000 units/ml) 5,000 units EVERY 12 HOURS SUBQ 10/22/16 09:00 11/21/16 08:59 Insulin Aspart (NovoLOG) Q6HR SUBQ 10/22/16 00:00 11/21/16 00:00 10/23/16 12:10 Lorazepam (Ativan 2mg/ml 1ml) 2 mg Q2H PRN IV For Anxiety 10/22/16 02:00 10/29/16 01:59 Midodrine (Pro-Amatine) 10 mg THREE TIMES A DAY GT 10/23/16 18:00 11/22/16 17:59 10/23/16 18:07 Morphine Sulfate (Morphine Sulfate) 4 mg Q4H PRN IVP Severe Pain (Pain Scale 7-10) 10/22/16 04:00 10/29/16 03:59 Ondansetron HCl (Zofran) 4 mg Q6H PRN IVP Nausea & Vomiting 10/22/16 02:00 11/21/16 01:59 Piperacillin Sod/ Tazobactam Sod/ Dextrose (Zosyn/D5W) 110 ml @ 27.5 mls/hr EVERY 8 HOURS IVPB 10/22/16 06:00 10/27/16 05:59 10/23/16 13:38 Polyethylene Glycol (Miralax) 17 gm DAILYPRN PRN ORAL Constipation 10/22/16 20:00 11/21/16 19:59 Ranitidine HCl (Zantac) 150 mg TWICE A DAY GT 10/23/16 18:00 11/22/16 17:59 10/23/16 18:08 Vancomycin HCl 1 ea 1 ea DAILY PRN MISC PRN RX PROTOCOL 10/22/16 09:00 11/21/16 08:59 Vancomycin HCl/ Dextrose (Vancomycin/D5W) 275 ml @ 183.708 mls/hr Q12HR@0000,1200 IVPB 10/24/16 00:00 10/29/16 00:00 BRIE PASCUAL October 23, 2016 20:16
[2016-10-23] MEDS: Vancomycin 750 MG in D5W 275 ML IVPB SCH (23:32)
[2016-10-24] VITALS: BP 102/68
[2016-10-24 04:00] VITALS: BP 97/58
[2016-10-24] MEDS: Piperacillin/Tazobactam 3.375 GM in D5W 110 ML IVPB SCH ×2 (05:43→12:58)
[2016-10-24] MEDS: NovoLOG Insulin Flexpen SUBQ SCH ×4 (05:44→23:46)
[2016-10-24 07:03] LABS: PROTHROMBIN TIME 10.5 SEC (9.30-11.50)
[2016-10-24 07:15] LABS: ALANINE AMINOTRANSFERASE 22 U/L (3-41); ALBUMIN/GLOBULIN RATIO 0.6 (1.0-2.7); ANION GAP 8 (5-15); ASPARTATE AMINO TRANSFERASE 29 U/L (5-40); CALCIUM 8.4 mg/dL (8.6-10.2); CARBON DIOXIDE 32 mEQ/L (20-30); CHLORIDE 108 mEQ/L (98-107); CREATININE 0.6 mg/dL (0.7-1.2); GLOMERULAR FILTRATION RATE > 60 mL/min (>60); HEMOLYSIS 0; PHOSPHORUS 2.9 mg/dL (2.5-4.8); POTASSIUM 3.5 mEQ/L (3.4-4.9); SODIUM 148 mEQ/L (135-145); TOTAL PROTEIN 6.4 g/dL (6.6-8.7)
[2016-10-24 07:16] LABS: BASOPHILS % (AUTO) 0.1 % (0.0-2.0); EOSINOPHILS % (AUTO) 2.5 % (0.0-3.0); LYMPHOCYTES % (AUTO) 13.6 % (20.0-45.0); MEAN CORPUSCULAR HGB CONC 30.6 G/DL (32.0-36.0); MEAN CORPUSCULAR VOLUME 78 FL (80-99); MEAN PLATELET VOLUME 10.1 FL (6.5-10.1); MONOCYTES % (AUTO) 5.1 % (1.0-10.0); NEUTROPHILS % (AUTO) 78.7 % (45.0-75.0); PLATELET COUNT 127 K/UL (150-450); RED BLOOD COUNT 4.22 M/UL (4.70-6.10); RED CELL DISTRIBUTION WIDTH 16.5 % (11.6-14.8); WHITE BLOOD COUNT 15.3 K/UL (4.8-10.8)
[2016-10-24 08:05] VITALS: BP 95/61
[2016-10-24] MEDS: Midodrine 10mg tab GT SCH ×4 (09:24→18:00)
--- NOTE | 2016-10-24 10:44 | General Progress Note ---
Assessment/Plan Status: stable Status Narrative BP low but patient asymptomatic Assessment/Plan status: Septic Shock, recovering Acute renal failure, Cr lower, Na lower Free water deficit h/o COPD , DM , Psych disease Free water - D5W Midodrine for low BP antibiotics Hemodynamic support Keep the BS in check Avoid nephrotoxics per orders Subjective ROS Limited/Unobtainable: No Constitutional: Reports: malaise Allergies: Coded Allergies: FLUPHENAZINE (Unverified Allergy, Unknown, 10/19/16) HALOPERIDOL (Unverified Allergy, Unknown, 10/19/16) Objective Last 24 Hour Vital Signs Date Time Temp Pulse Resp B/P Pulse Ox O2 Delivery O2 Flow Rate FiO2 10/24/16 08:12 Nasal Cannula 2.0 28 10/24/16 08:12 75 18 Nasal Cannula 2.0 10/24/16 08:12 95 Nasal Cannula 2.0 10/24/16 08:05 97.7 79 20 95/61 95 Room Air 10/24/16 04:00 98.1 65 18 97/58 97 Room Air 10/24/16 00:00 98.2 77 20 102/68 97 Nasal Cannula 10/23/16 20:00 98.8 78 20 93/60 96 Room Air 10/23/16 19:30 86 18 Nasal Cannula 2.0 28 10/23/16 19:20 96 Nasal Cannula 2.0 28 10/23/16 19:20 Nasal Cannula 2.0 28 10/23/16 15:31 97.5 77 16 102/62 96 Room Air 10/23/16 11:18 97.7 72 14 92/58 100 Nasal Cannula Intake and Output 10/23/16 10/24/16 19:00 07:00 Intake Total 1177.5 ml 1544.916 ml Output Total 1200 ml 1400 ml Balance -22.5 ml 144.916 ml Intake Free Water 200 ml 200 ml IV Total 137.5 ml 504.916 ml Tube Feeding 840 ml 840 ml Output Urine Total 1200 ml 1400 ml # Bowel Movements 1 2 Laboratory Tests 10/23/16 11:15: Vancomycin Level Trough 7.0 10/24/16 05:26: White Blood Count 15.3H, Red Blood Count 4.22L, Hemoglobin 10.1L, Hematocrit 33.0L, Mean Corpuscular Volume 78L, Mean Corpuscular Hemoglobin 24.0L, Mean Corpuscular Hemoglobin Concent 30.6L, Red Cell Distribution Width 16.5H, Platelet Count 127L, Mean Platelet Volume 10.1, Neutrophils (%) (Auto) 78.7H, Lymphocytes (%) (Auto) 13.6L, Monocytes (%) (Auto) 5.1, Eosinophils (%) (Auto) 2.5, Basophils (%) (Auto) 0.1, Prothrombin Time 10.5, Prothromb Time International Ratio 1.0, Activated Partial Thromboplast Time 29, Sodium Level 148H, Potassium Level 3.5, Chloride Level 108H, Carbon Dioxide Level 32H, Anion Gap 8, Blood Urea Nitrogen 14, Creatinine 0.6L, Estimat Glomerular Filtration Rate > 60, Glucose Level 115H, Calcium Level 8.4L, Phosphorus Level 2.9, Magnesium Level 2.0, Total Bilirubin 0.2, Aspartate Amino Transf (AST/SGOT) 29, Alanine Aminotransferase (ALT/SGPT) 22, Alkaline Phosphatase 103, Total Protein 6.4L, Albumin 2.5L, Globulin 3.9, Albumin/Globulin Ratio 0.6L Height (Feet): 6 Height (Inches): 6.00 Weight (Pounds): 138 General Appearance: no apparent distress Cardiovascular: normal rate Respiratory/Chest: decreased breath sounds Abdomen: soft Objective other PE not changed KEV FELIX October 24, 2016 10:44
[2016-10-24 11:29] VITALS: BP 101/60
[2016-10-24] MEDS: Vancomycin 750 MG in D5W 275 ML IVPB SCH ×2 (11:41→23:48)
--- NOTE | 2016-10-24 11:50 | Diagnostic Imaging Report ---
Indication: Dyspnea Comparison: 10/21/16 A single view chest radiograph was obtained. Findings: Patchy perihilar infiltrate suspected and new since the last study. Heart size remains normal. PICC line is stable. Carlton foreign bodies again noted. Impression: Suspected perihilar infiltrates.
[2016-10-24] MEDS ORDERED: NS 275ml ONE (15:37)
[2016-10-24] MEDS ORDERED: Tubing IV Secondary IV ONE (15:37)
[2016-10-24] MEDS ORDERED: NS 550ML IV ONE (15:37)
[2016-10-24] MEDS ORDERED: D5W 550ml IV ONE (15:37)
[2016-10-24 15:44] VITALS: BP 118/71
--- NOTE | 2016-10-24 18:19 | Infectious Diseases Prog Note ---
Assessment/Plan Assessment/Plan A: The patient is a 66-year-old male with UTI : ESBL Ecoli and UCx : ( Mariaelena : Colonizer ) Pneumonian SCx : MRSA C-xray : Suspected perihilar infiltrates. Sepsis , SP Leukocytosis Respiratory distress, SP Hypotension hx of Pneumonia (pneumococcus, pseudomonas and MRSA ( 09/2016 ) History of urinary tract infection recently PICC 5/2 COPD Diabetes Peptic ulcer disease Peripheral neuropathy Bipolar disorder PLAN: start pt on IV Invanz d# 1 and vancomycin day # 6 DC Zosyn day # 6 Monitor CBC Monitor BMP Monitor chest x-ray Subjective Constitutional: Denies: anorexia, chills, drenching sweats, fatigue, fever, no symptoms, other Allergies: Coded Allergies: FLUPHENAZINE (Unverified Allergy, Unknown, 10/19/16) HALOPERIDOL (Unverified Allergy, Unknown, 10/19/16) Subjective afebrile Objective Vital Signs Last 24 Hour Vital Signs Date Time Temp Pulse Resp B/P Pulse Ox O2 Delivery O2 Flow Rate FiO2 10/24/16 15:44 97.9 80 21 118/71 97 Room Air 10/24/16 11:29 97.6 78 21 101/60 98 Room Air 10/24/16 08:12 Nasal Cannula 2.0 28 10/24/16 08:12 75 18 Nasal Cannula 2.0 28 10/24/16 08:12 95 Nasal Cannula 2.0 28 10/24/16 08:05 97.7 79 20 95/61 95 Room Air 10/24/16 04:00 98.1 65 18 97/58 97 Room Air 10/24/16 00:00 98.2 77 20 102/68 97 Nasal Cannula 10/23/16 20:00 98.8 78 20 93/60 96 Room Air 10/23/16 19:30 86 18 Nasal Cannula 2.0 28 10/23/16 19:20 96 Nasal Cannula 2.0 28 10/23/16 19:20 Nasal Cannula 2.0 28 Height (Feet): 6 Height (Inches): 6.00 Weight (Pounds): 138 HEENT: mucous membranes moist Respiratory/Chest: no accessory muscle use Cardiovascular: regularly irregular Abdomen: non distended Laboratory Tests Test 10/24/16 05:26 White Blood Count 15.3 K/UL (4.8-10.8) H Red Blood Count 4.22 M/UL (4.70-6.10) L Hemoglobin 10.1 G/DL (14.2-18.0) L Hematocrit 33.0 % (42.0-52.0) L Mean Corpuscular Volume 78 FL (80-99) L Mean Corpuscular Hemoglobin 24.0 PG (27.0-31.0) L Mean Corpuscular Hemoglobin Concent 30.6 G/DL (32.0-36.0) L Red Cell Distribution Width 16.5 % (11.6-14.8) H Platelet Count 127 K/UL (150-450) L Mean Platelet Volume 10.1 FL (6.5-10.1) Neutrophils (%) (Auto) 78.7 % (45.0-75.0) H Lymphocytes (%) (Auto) 13.6 % (20.0-45.0) L Monocytes (%) (Auto) 5.1 % (1.0-10.0) Eosinophils (%) (Auto) 2.5 % (0.0-3.0) Basophils (%) (Auto) 0.1 % (0.0-2.0) Prothrombin Time 10.5 SEC (9.30-11.50) Prothromb Time International Ratio 1.0 (0.9-1.1) Activated Partial Thromboplast Time 29 SEC (23-33) Sodium Level 148 mEQ/L (135-145) H Potassium Level 3.5 mEQ/L (3.4-4.9) Chloride Level 108 mEQ/L (98-107) H Carbon Dioxide Level 32 mEQ/L (20-30) H Anion Gap 8 (5-15) Blood Urea Nitrogen 14 mg/dL (7-23) Creatinine 0.6 mg/dL (0.7-1.2) L Estimat Glomerular Filtration Rate > 60 mL/min (>60) Glucose Level 115 mg/dL (74-106) H Calcium Level 8.4 mg/dL (8.6-10.2) L Phosphorus Level 2.9 mg/dL (2.5-4.8) Magnesium Level 2.0 mg/dL (1.7-2.5) Total Bilirubin 0.2 mg/dL (0.0-1.2) Aspartate Amino Transf (AST/SGOT) 29 U/L (5-40) Alanine Aminotransferase (ALT/SGPT) 22 U/L (3-41) Alkaline Phosphatase 103 U/L (40-129) Total Protein 6.4 g/dL (6.6-8.7) L Albumin 2.5 g/dL (3.5-5.2) L Globulin 3.9 g/dL Albumin/Globulin Ratio 0.6 (1.0-2.7) L Current Medications Medications (Trade) Dose Ordered Sig/Rafael Route PRN Reason Start Time Stop Time Status Last Admin Dose Admin Acetaminophen (Tylenol) 650 mg Q4H PRN ORAL T>100.5 10/22/16 04:00 11/21/16 03:59 Albuterol/ Ipratropium (DuoNeb 0.5-3(2.5)mg/3ml) 3 ml Q4H PRN HHN Shortness of Breath 10/22/16 04:00 10/27/16 03:59 Dextrose (Dextrose 50%) STAT PRN IV Hypoglycemia 10/22/16 19:45 11/21/16 19:44 Insulin Aspart (NovoLOG) Q6HR SUBQ 10/22/16 00:00 11/21/16 00:00 10/24/16 12:57 Lorazepam (Ativan 2mg/ml 1ml) 2 mg Q2H PRN IV For Anxiety 10/22/16 02:00 10/29/16 01:59 Midodrine (Pro-Amatine) 10 mg THREE TIMES A DAY GT 10/23/16 18:00 11/22/16 17:59 10/24/16 17:52 Morphine Sulfate (Morphine Sulfate) 4 mg Q4H PRN IVP Severe Pain (Pain Scale 7-10) 10/22/16 04:00 10/29/16 03:59 Ondansetron HCl (Zofran) 4 mg Q6H PRN IVP Nausea & Vomiting 10/22/16 02:00 11/21/16 01:59 Piperacillin Sod/ Tazobactam Sod/ Dextrose (Zosyn/D5W) 110 ml @ 27.5 mls/hr EVERY 8 HOURS IVPB 10/22/16 06:00 10/27/16 05:59 10/24/16 12:58 Polyethylene Glycol (Miralax) 17 gm DAILYPRN PRN ORAL Constipation 10/22/16 20:00 11/21/16 19:59 Ranitidine HCl (Zantac) 150 mg TWICE A DAY GT 10/23/16 18:00 11/22/16 17:59 10/24/16 17:52 Vancomycin HCl 1 ea 1 ea DAILY PRN MISC PRN RX PROTOCOL 10/22/16 09:00 11/21/16 08:59 Vancomycin HCl/ Dextrose (Vancomycin/D5W) 275 ml @ 183.708 mls/hr Q12HR@0000,1200 IVPB 10/24/16 00:00 10/29/16 00:00 10/24/16 11:41 BELL PAREKH M.D. October 24, 2016 18:19
[2016-10-24 19:58] VITALS: BP 117/62
[2016-10-24] MEDS: Ertapenem 1 GM in NS 55 ML IVPB SCH (20:29)
--- NOTE | 2016-10-24 21:58 | Pulmonology Progress Note ---
Assessment/Plan Problems: (1) Sepsis (2) FLORIAN (acute kidney injury) (3) Altered level of consciousness (4) Hypernatremia Assessment/Plan wbc decreasing but still elevated K supplement improving IV fluids check electrolyes tolerating feeding dvt prophylaxis check NA all notes, meds reviewed. Subjective Allergies: Coded Allergies: FLUPHENAZINE (Unverified Allergy, Unknown, 10/19/16) HALOPERIDOL (Unverified Allergy, Unknown, 10/19/16) Objective Last 24 Hour Vital Signs Date Time Temp Pulse Resp B/P Pulse Ox O2 Delivery O2 Flow Rate FiO2 10/24/16 21:34 96 Nasal Cannula 2.0 28 10/24/16 21:34 Nasal Cannula 2.0 28 10/24/16 21:34 77 19 Nasal Cannula 2.0 28 10/24/16 19:58 97.9 70 16 117/62 99 Nasal Cannula 10/24/16 15:44 97.9 80 21 118/71 97 Room Air 10/24/16 11:29 97.6 78 21 101/60 98 Room Air 10/24/16 08:12 Nasal Cannula 2.0 28 10/24/16 08:12 75 18 Nasal Cannula 2.0 28 10/24/16 08:12 95 Nasal Cannula 2.0 28 10/24/16 08:05 97.7 79 20 95/61 95 Room Air 10/24/16 04:00 98.1 65 18 97/58 97 Room Air 10/24/16 00:00 98.2 77 20 102/68 97 Nasal Cannula Intake and Output 10/23/16 10/24/16 19:00 07:00 Intake Total 1177.5 ml 1544.916 ml Output Total 1200 ml 1400 ml Balance -22.5 ml 144.916 ml Free Water 200 ml 200 ml IV Total 137.5 ml 504.916 ml Tube Feeding 840 ml 840 ml Output Urine Total 1200 ml 1400 ml # Bowel Movements 1 2 Objective General Appearance: WD/WN HEENT: normocephalic, atraumatic Respiratory/Chest: chest wall non-tender, lungs clear Cardiovascular: normal peripheral pulses, normal rate Abdomen: normal bowel sounds, soft, non tender Genitourinary: normal external genitalia Extremities: no cyanosis Skin: no rash 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 grossly normal, no motor/sensory deficits Lymphatic: no neck adenopathy Laboratory Tests 10/24/16 05:26: White Blood Count 15.3H, Red Blood Count 4.22L, Hemoglobin 10.1L, Hematocrit 33.0L, Mean Corpuscular Volume 78L, Mean Corpuscular Hemoglobin 24.0L, Mean Corpuscular Hemoglobin Concent 30.6L, Red Cell Distribution Width 16.5H, Platelet Count 127L, Mean Platelet Volume 10.1, Neutrophils (%) (Auto) 78.7H, Lymphocytes (%) (Auto) 13.6L, Monocytes (%) (Auto) 5.1, Eosinophils (%) (Auto) 2.5, Basophils (%) (Auto) 0.1, Prothrombin Time 10.5, Prothromb Time International Ratio 1.0, Activated Partial Thromboplast Time 29, Sodium Level 148H, Potassium Level 3.5, Chloride Level 108H, Carbon Dioxide Level 32H, Anion Gap 8, Blood Urea Nitrogen 14, Creatinine 0.6L, Estimat Glomerular Filtration Rate > 60, Glucose Level 115H, Calcium Level 8.4L, Phosphorus Level 2.9, Magnesium Level 2.0, Total Bilirubin 0.2, Aspartate Amino Transf (AST/SGOT) 29, Alanine Aminotransferase (ALT/SGPT) 22, Alkaline Phosphatase 103, Total Protein 6.4L, Albumin 2.5L, Globulin 3.9, Albumin/Globulin Ratio 0.6L Current Medications Medications (Trade) Dose Ordered Sig/Rafael Route PRN Reason Start Time Stop Time Status Last Admin Dose Admin Acetaminophen (Tylenol) 650 mg Q4H PRN ORAL T>100.5 10/22/16 04:00 11/21/16 03:59 Albuterol/ Ipratropium (DuoNeb 0.5-3(2.5)mg/3ml) 3 ml Q4H PRN HHN Shortness of Breath 10/22/16 04:00 10/27/16 03:59 Dextrose (Dextrose 50%) STAT PRN IV Hypoglycemia 10/22/16 19:45 11/21/16 19:44 Ertapenem/Sodium Chloride (INVanz/Sodium Chloride) 55 ml @ 110 mls/hr Q24H IVPB 10/24/16 20:00 10/29/16 19:59 10/24/16 20:29 Insulin Aspart (NovoLOG) Q6HR SUBQ 10/22/16 00:00 11/21/16 00:00 10/24/16 12:57 Lorazepam (Ativan 2mg/ml 1ml) 2 mg Q2H PRN IV For Anxiety 10/22/16 02:00 10/29/16 01:59 Midodrine 10 mg 10 mg THREE TIMES A DAY GT 10/23/16 18:00 11/22/16 17:59 10/24/16 12:56 Morphine Sulfate (Morphine Sulfate) 4 mg Q4H PRN IVP Severe Pain (Pain Scale 7-10) 10/22/16 04:00 10/29/16 03:59 Ondansetron HCl (Zofran) 4 mg Q6H PRN IVP Nausea & Vomiting 10/22/16 02:00 11/21/16 01:59 Polyethylene Glycol (Miralax) 17 gm DAILYPRN PRN ORAL Constipation 10/22/16 20:00 11/21/16 19:59 Ranitidine HCl (Zantac) 150 mg TWICE A DAY GT 10/23/16 18:00 11/22/16 17:59 10/24/16 17:52 Vancomycin HCl 1 ea 1 ea DAILY PRN MISC PRN RX PROTOCOL 10/22/16 09:00 11/21/16 08:59 Vancomycin HCl/ Dextrose (Vancomycin/D5W) 275 ml @ 183.708 mls/hr Q12HR@0000,1200 IVPB 10/24/16 00:00 10/29/16 00:00 10/24/16 11:41 BRIE PASCUAL October 24, 2016 21:58
[2016-10-25] VITALS: BP 100/53
[2016-10-25 04:00] VITALS: BP 126/51
[2016-10-25] MEDS: NovoLOG Insulin Flexpen SUBQ SCH ×4 (06:24→23:39)
[2016-10-25 08:00] VITALS: BP 80/49
[2016-10-25] MEDS: Midodrine 10mg tab GT SCH ×3 (09:43→18:25)
--- NOTE | 2016-10-25 11:23 | General Progress Note ---
Assessment/Plan Status: stable Status Narrative BP variable- Assessment/Plan status: Septic Shock, recovering Acute renal failure, Cr lower, Na lower Free water deficit h/o COPD , DM , Psych disease plan: No labs today- will order in am- Free water - D5W Midodrine for low BP antibiotics Hemodynamic support Keep the BS in check Avoid nephrotoxics per orders Subjective ROS Limited/Unobtainable: No Constitutional: Reports: malaise Allergies: Coded Allergies: FLUPHENAZINE (Unverified Allergy, Unknown, 10/19/16) HALOPERIDOL (Unverified Allergy, Unknown, 10/19/16) Objective Last 24 Hour Vital Signs Date Time Temp Pulse Resp B/P Pulse Ox O2 Delivery O2 Flow Rate FiO2 10/25/16 08:10 83 18 Nasal Cannula 2.0 28 10/25/16 08:10 Nasal Cannula 2.0 28 10/25/16 08:10 96 Nasal Cannula 2.0 28 10/25/16 08:00 97.3 83 20 80/49 99 Nasal Cannula 2.0 10/25/16 04:00 97.5 84 16 126/51 98 Room Air 10/25/16 00:00 97.5 79 17 100/53 99 Room Air 10/24/16 21:34 96 Nasal Cannula 2.0 28 10/24/16 21:34 Nasal Cannula 2.0 28 10/24/16 21:34 77 19 Nasal Cannula 2.0 28 10/24/16 19:58 97.9 70 16 117/62 99 Nasal Cannula 10/24/16 15:44 97.9 80 21 118/71 97 Room Air 10/24/16 11:29 97.6 78 21 101/60 98 Room Air Intake and Output 10/24/16 10/25/16 19:00 07:00 Intake Total 1425.000 ml 1517.416 ml Output Total 1100 ml 1400 ml Balance 325.000 ml 117.416 ml Intake Oral 0 ml Free Water 200 ml 200 ml IV Total 385.000 ml 477.416 ml Tube Feeding 840 ml 840 ml Output Urine Total 1100 ml 1400 ml # Bowel Movements 1 Height (Feet): 6 Height (Inches): 6.00 Weight (Pounds): 138 General Appearance: no apparent distress Objective other PE not changed KEV FELIX October 25, 2016 11:23
--- NOTE | 2016-10-25 11:57 | Infectious Diseases Prog Note ---
Assessment/Plan Assessment/Plan A: MRSA pneumonia UTI with E. 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 DM P; continue Ertapenem & Vancomycin Subjective ROS Limited/Unobtainable: Yes Allergies: Coded Allergies: FLUPHENAZINE (Unverified Allergy, Unknown, 10/19/16) HALOPERIDOL (Unverified Allergy, Unknown, 10/19/16) Objective Vital Signs Last 24 Hour Vital Signs Date Time Temp Pulse Resp B/P Pulse Ox O2 Delivery O2 Flow Rate FiO2 10/25/16 08:10 83 18 Nasal Cannula 2.0 28 10/25/16 08:10 Nasal Cannula 2.0 28 10/25/16 08:10 96 Nasal Cannula 2.0 28 10/25/16 08:00 97.3 83 20 80/49 99 Nasal Cannula 2.0 10/25/16 04:00 97.5 84 16 126/51 98 Room Air 10/25/16 00:00 97.5 79 17 100/53 99 Room Air 10/24/16 21:34 96 Nasal Cannula 2.0 28 10/24/16 21:34 Nasal Cannula 2.0 28 10/24/16 21:34 77 19 Nasal Cannula 2.0 28 10/24/16 19:58 97.9 70 16 117/62 99 Nasal Cannula 10/24/16 15:44 97.9 80 21 118/71 97 Room Air Height (Feet): 6 Height (Inches): 6.00 Weight (Pounds): 138 HEENT: mucous membranes moist Respiratory/Chest: lungs clear Cardiovascular: normal rate Abdomen: soft, non tender, other - GT feeding Extremities: no edema, other - contracted right hand, left arm PICC line Neurologic/Psychiatric: alert, aphasia Current Medications Medications (Trade) Dose Ordered Sig/Rafael Route PRN Reason Start Time Stop Time Status Last Admin Dose Admin Acetaminophen (Tylenol) 650 mg Q4H PRN ORAL T>100.5 10/22/16 04:00 11/21/16 03:59 Albuterol/ Ipratropium (DuoNeb 0.5-3(2.5)mg/3ml) 3 ml Q4H PRN HHN Shortness of Breath 10/22/16 04:00 10/27/16 03:59 Dextrose (Dextrose 50%) STAT PRN IV Hypoglycemia 10/22/16 19:45 11/21/16 19:44 Ertapenem/Sodium Chloride (INVanz/Sodium Chloride) 55 ml @ 110 mls/hr Q24H IVPB 10/24/16 20:00 10/29/16 19:59 10/24/16 20:29 Insulin Aspart (NovoLOG) Q6HR SUBQ 10/22/16 00:00 11/21/16 00:00 10/25/16 06:24 Lorazepam (Ativan 2mg/ml 1ml) 2 mg Q2H PRN IV For Anxiety 10/22/16 02:00 10/29/16 01:59 Midodrine 10 mg 10 mg THREE TIMES A DAY GT 10/23/16 18:00 11/22/16 17:59 10/25/16 09:43 Morphine Sulfate (Morphine Sulfate) 4 mg Q4H PRN IVP Severe Pain (Pain Scale 7-10) 10/22/16 04:00 10/29/16 03:59 Ondansetron HCl (Zofran) 4 mg Q6H PRN IVP Nausea & Vomiting 10/22/16 02:00 11/21/16 01:59 Polyethylene Glycol (Miralax) 17 gm DAILYPRN PRN ORAL Constipation 10/22/16 20:00 11/21/16 19:59 Ranitidine HCl (Zantac) 150 mg TWICE A DAY GT 10/23/16 18:00 11/22/16 17:59 10/25/16 09:43 Vancomycin HCl 1 ea 1 ea DAILY PRN MISC PRN RX PROTOCOL 10/22/16 09:00 11/21/16 08:59 Vancomycin HCl/ Dextrose (Vancomycin/D5W) 275 ml @ 183.708 mls/hr Q12HR@0000,1200 IVPB 10/24/16 00:00 10/29/16 00:00 10/24/16 23:48 IVAN DESAI October 25, 2016 11:57
[2016-10-25 12:00] VITALS: BP 100/69
[2016-10-25] MEDS: Vancomycin 750 MG in D5W 275 ML IVPB SCH (12:38)
[2016-10-25] MEDS ORDERED: Vancomycin 500mg in D5W 110ml IVPB ONE (14:30)
[2016-10-25 16:00] VITALS: BP 106/67
[2016-10-25] MEDS ORDERED: NS 275ml ONE (16:06)
[2016-10-25] MEDS ORDERED: Tubing IV Secondary IV ONE (16:06)
[2016-10-25] MEDS ORDERED: Sterile Water Irrig 1000ml IRRIG ONE (16:06)
[2016-10-25 20:00] VITALS: BP 90/57
[2016-10-25] MEDS: Ertapenem 1 GM in NS 55 ML IVPB SCH (20:35)
[2016-10-26] VITALS: BP 105/64
[2016-10-26 04:00] VITALS: BP 105/64
[2016-10-26] MEDS: Vancomycin 1gm in D5W 275ml IVPB SCH ×2 (04:12→16:56)
[2016-10-26] MEDS: NovoLOG Insulin Flexpen SUBQ SCH ×3 (05:53→18:30)
[2016-10-26 06:14] LABS: BASOPHILS % (AUTO) 0.2 % (0.0-2.0); EOSINOPHILS % (AUTO) 1.8 % (0.0-3.0); LYMPHOCYTES % (AUTO) 17.6 % (20.0-45.0); MEAN CORPUSCULAR HEMOGLOBIN 24.1 PG (27.0-31.0); MEAN CORPUSCULAR HGB CONC 30.9 G/DL (32.0-36.0); MEAN CORPUSCULAR VOLUME 78 FL (80-99); MEAN PLATELET VOLUME 9.8 FL (6.5-10.1); NEUTROPHILS % (AUTO) 75.3 % (45.0-75.0); PLATELET COUNT 226 K/UL (150-450); RED BLOOD COUNT 4.15 M/UL (4.70-6.10); WHITE BLOOD COUNT 13.8 K/UL (4.8-10.8)
[2016-10-26 06:34] LABS: ALANINE AMINOTRANSFERASE 18 U/L (3-41); ALBUMIN/GLOBULIN RATIO 0.6 (1.0-2.7); ANION GAP 11 (5-15); ASPARTATE AMINO TRANSFERASE 21 U/L (5-40); CALCIUM 8.6 mg/dL (8.6-10.2); CARBON DIOXIDE 31 mEQ/L (20-30); CHLORIDE 102 mEQ/L (98-107); CREATININE 0.5 mg/dL (0.7-1.2); GLOMERULAR FILTRATION RATE > 60 mL/min (>60); HEMOLYSIS 0; MAGNESIUM 1.8 mg/dL (1.7-2.5); POTASSIUM 3.8 mEQ/L (3.4-4.9); SODIUM 144 mEQ/L (135-145); TOTAL PROTEIN 6.4 g/dL (6.6-8.7); URIC ACID 3.3 mg/dL (3.0-7.5)
[2016-10-26 07:47] VITALS: BP 85/53
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
--- NOTE | 2016-10-26 09:19 | Infectious Diseases Prog Note ---
Assessment/Plan Assessment/Plan A: The patient is a 66-year-old male with UTI : ESBL Ecoli and UCx : ( Mariaelena : Colonizer ) Pneumonian SCx : MRSA C-xray : Suspected perihilar infiltrates. Wnd Cx: MRSA and ACB ( Colonizers ) Sepsis , SP Leukocytosis Respiratory distress, SP Hypotension hx of Pneumonia (pneumococcus, pseudomonas and MRSA ( 09/2016 ) History of urinary tract infection recently PICC 5/ COPD Diabetes Peptic ulcer disease Peripheral neuropathy Bipolar disorder PLAN: cont on IV Invanz d# 3 and vancomycin day # 8 ( 5/6 SP Zosyn day # 6 ) Monitor CBC Monitor BMP Monitor chest x-ray Subjective Allergies: Coded Allergies: FLUPHENAZINE (Unverified Allergy, Unknown, 10/19/16) HALOPERIDOL (Unverified Allergy, Unknown, 10/19/16) Subjective afebrile Objective Vital Signs Last 24 Hour Vital Signs Date Time Temp Pulse Resp B/P Pulse Ox O2 Delivery O2 Flow Rate FiO2 10/26/16 07:47 97.7 81 20 85/53 98 Nasal Cannula 2.0 10/26/16 04:00 97.0 80 18 105/64 Room Air 10/26/16 00:00 97.0 80 18 105/64 97 Room Air 10/25/16 20:00 97.0 75 18 90/57 Room Air 10/25/16 19:50 100 Nasal Cannula 2.0 28 10/25/16 19:50 74 18 Nasal Cannula 2.0 28 10/25/16 19:50 Nasal Cannula 2.0 28 10/25/16 16:00 97.7 82 20 106/67 99 Nasal Cannula 2.0 10/25/16 12:00 97.0 85 20 100/69 98 Nasal Cannula 2.0 Height (Feet): 6 Height (Inches): 6.00 Weight (Pounds): 138 HEENT: atraumatic Respiratory/Chest: normal breath sounds Cardiovascular: regularly irregular Abdomen: non distended Laboratory Tests Test 10/25/16 11:45 10/26/16 05:18 Vancomycin Level Trough 10.8 ug/mL (5.0-12.0) White Blood Count 13.8 K/UL (4.8-10.8) H Red Blood Count 4.15 M/UL (4.70-6.10) L Hemoglobin 10.0 G/DL (14.2-18.0) L Hematocrit 32.4 % (42.0-52.0) L Mean Corpuscular Volume 78 FL (80-99) L Mean Corpuscular Hemoglobin 24.1 PG (27.0-31.0) L Mean Corpuscular Hemoglobin Concent 30.9 G/DL (32.0-36.0) L Red Cell Distribution Width 17.0 % (11.6-14.8) H Platelet Count 226 K/UL (150-450) Mean Platelet Volume 9.8 FL (6.5-10.1) Neutrophils (%) (Auto) 75.3 % (45.0-75.0) H Lymphocytes (%) (Auto) 17.6 % (20.0-45.0) L Monocytes (%) (Auto) 5.0 % (1.0-10.0) Eosinophils (%) (Auto) 1.8 % (0.0-3.0) Basophils (%) (Auto) 0.2 % (0.0-2.0) Sodium Level 144 mEQ/L (135-145) Potassium Level 3.8 mEQ/L (3.4-4.9) Chloride Level 102 mEQ/L (98-107) Carbon Dioxide Level 31 mEQ/L (20-30) H Anion Gap 11 (5-15) Blood Urea Nitrogen 15 mg/dL (7-23) Creatinine 0.5 mg/dL (0.7-1.2) L Estimat Glomerular Filtration Rate > 60 mL/min (>60) Glucose Level 126 mg/dL (74-106) H Uric Acid 3.3 mg/dL (3.0-7.5) Calcium Level 8.6 mg/dL (8.6-10.2) Phosphorus Level 3.0 mg/dL (2.5-4.8) Magnesium Level 1.8 mg/dL (1.7-2.5) Total Bilirubin < 0.2 mg/dL (0.0-1.2) Aspartate Amino Transf (AST/SGOT) 21 U/L (5-40) Alanine Aminotransferase (ALT/SGPT) 18 U/L (3-41) Alkaline Phosphatase 65 U/L (40-129) Pro-B-Type Natriuretic Peptide 1180 pg/mL (0-125) H Total Protein 6.4 g/dL (6.6-8.7) L Albumin 2.6 g/dL (3.5-5.2) L Globulin 3.8 g/dL Albumin/Globulin Ratio 0.6 (1.0-2.7) L Current Medications Medications (Trade) Dose Ordered Sig/Rafael Route PRN Reason Start Time Stop Time Status Last Admin Dose Admin Acetaminophen (Tylenol) 650 mg Q4H PRN ORAL T>100.5 10/22/16 04:00 11/21/16 03:59 Albuterol/ Ipratropium (DuoNeb 0.5-3(2.5)mg/3ml) 3 ml Q4H PRN HHN Shortness of Breath 10/22/16 04:00 10/27/16 03:59 Dextrose (Dextrose 50%) STAT PRN IV Hypoglycemia 10/22/16 19:45 11/21/16 19:44 Ertapenem 1 gm/ Sodium Chloride 55 ml @ 110 mls/hr Q24H IVPB 10/24/16 20:00 10/29/16 19:59 10/25/16 20:35 Insulin Aspart (NovoLOG) Q6HR SUBQ 10/22/16 00:00 11/21/16 00:00 10/26/16 05:53 Lorazepam (Ativan 2mg/ml 1ml) 2 mg Q2H PRN IV For Anxiety 10/22/16 02:00 10/29/16 01:59 Midodrine 10 mg 10 mg THREE TIMES A DAY GT 10/23/16 18:00 11/22/16 17:59 10/25/16 18:25 Morphine Sulfate (Morphine Sulfate) 4 mg Q4H PRN IVP Severe Pain (Pain Scale 7-10) 10/22/16 04:00 10/29/16 03:59 Ondansetron HCl (Zofran) 4 mg Q6H PRN IVP Nausea & Vomiting 10/22/16 02:00 11/21/16 01:59 Polyethylene Glycol (Miralax) 17 gm DAILYPRN PRN ORAL Constipation 10/22/16 20:00 11/21/16 19:59 Ranitidine HCl (Zantac) 150 mg TWICE A DAY GT 10/23/16 18:00 11/22/16 17:59 10/25/16 18:25 Vancomycin HCl (Vanco rx to dose) 1 ea DAILY PRN MISC PRN RX PROTOCOL 10/22/16 09:00 11/21/16 08:59 Vancomycin HCl/ Dextrose (Vancomycin/D5W) 275 ml @ 183.708 mls/hr Q12HR@0400,1600 IVPB 10/26/16 04:00 10/31/16 03:59 10/26/16 04:12 BELL PAREKH M.D. October 26, 2016 09:19
[2016-10-26] MEDS: Midodrine 10mg tab GT SCH ×3 (10:41→18:29)
--- NOTE | 2016-10-26 11:37 | General Progress Note ---
Assessment/Plan Status: stable - from renal stand Assessment/Plan status: Septic Shock, recovering Acute renal failure, Cr lower, Na lower Free water deficit h/o COPD , DM , Psych disease plan: Free water - D5W Midodrine for low BP antibiotics Hemodynamic support Keep the BS in check Avoid nephrotoxics per orders ? DC planning? Subjective ROS Limited/Unobtainable: No Constitutional: Reports: malaise Allergies: Coded Allergies: FLUPHENAZINE (Unverified Allergy, Unknown, 10/19/16) HALOPERIDOL (Unverified Allergy, Unknown, 10/19/16) Objective Last 24 Hour Vital Signs Date Time Temp Pulse Resp B/P Pulse Ox O2 Delivery O2 Flow Rate FiO2 10/26/16 07:47 97.7 81 20 85/53 98 Nasal Cannula 2.0 10/26/16 06:33 78 18 Nasal Cannula 2.0 10/26/16 06:33 98 Nasal Cannula 2.0 10/26/16 06:33 Nasal Cannula 2.0 10/26/16 04:00 97.0 80 18 105/64 Room Air 10/26/16 00:00 97.0 80 18 105/64 97 Room Air 10/25/16 20:00 97.0 75 18 90/57 Room Air 10/25/16 19:50 100 Nasal Cannula 2.0 28 10/25/16 19:50 74 18 Nasal Cannula 2.0 28 10/25/16 19:50 Nasal Cannula 2.0 28 10/25/16 16:00 97.7 82 20 106/67 99 Nasal Cannula 2.0 10/25/16 12:00 97.0 85 20 100/69 98 Nasal Cannula 2.0 Intake and Output 10/25/16 10/26/16 19:00 07:00 Intake Total 1040 ml 1517.416 ml Output Total 1200 ml 1100 ml Balance -160 ml 417.416 ml Free Water 200 ml 200 ml IV Total 477.416 ml Tube Feeding 840 ml 840 ml Output Urine Total 1200 ml 1100 ml # Bowel Movements 1 2 Laboratory Tests 10/25/16 11:45: Vancomycin Level Trough 10.8 10/26/16 05:18: White Blood Count 13.8H, Red Blood Count 4.15L, Hemoglobin 10.0L, Hematocrit 32.4L, Mean Corpuscular Volume 78L, Mean Corpuscular Hemoglobin 24.1L, Mean Corpuscular Hemoglobin Concent 30.9L, Red Cell Distribution Width 17.0H, Platelet Count 226, Mean Platelet Volume 9.8, Neutrophils (%) (Auto) 75.3H, Lymphocytes (%) (Auto) 17.6L, Monocytes (%) (Auto) 5.0, Eosinophils (%) (Auto) 1.8, Basophils (%) (Auto) 0.2, Sodium Level 144, Potassium Level 3.8, Chloride Level 102, Carbon Dioxide Level 31H, Anion Gap 11, Blood Urea Nitrogen 15, Creatinine 0.5L, Estimat Glomerular Filtration Rate > 60, Glucose Level 126H, Uric Acid 3.3, Calcium Level 8.6, Phosphorus Level 3.0, Magnesium Level 1.8, Total Bilirubin < 0.2, Aspartate Amino Transf (AST/SGOT) 21, Alanine Aminotransferase (ALT/SGPT) 18, Alkaline Phosphatase 65, Pro-B-Type Natriuretic Peptide 1180H, Total Protein 6.4L, Albumin 2.6L, Globulin 3.8, Albumin/Globulin Ratio 0.6L Height (Feet): 6 Height (Inches): 6.00 Weight (Pounds): 138 General Appearance: no apparent distress Objective other PE not changed KEV FELIX October 26, 2016 11:37
[2016-10-26 11:58] VITALS: BP 98/60
[2016-10-26 15:44] VITALS: BP 103/63
[2016-10-26 20:00] VITALS: BP 105/63
[2016-10-26] MEDS: Ertapenem 1 GM in NS 55 ML IVPB SCH (20:58)
[2016-10-26] MEDS ORDERED: PRO-AMATINE10 MG GT (21:18)
--- NOTE | 2016-10-26 21:20 | Pulmonology Progress Note ---
Assessment/Plan Problems: (1) Sepsis (2) FLORIAN (acute kidney injury) (3) Altered level of consciousness (4) Hypernatremia Assessment/Plan awake, looks comfortable wbc decreasing but still elevated K supplement improving IV fluids check electrolyes tolerating feeding dvt prophylaxis check NA all notes, meds reviewed. Subjective ROS Limited/Unobtainable: No Interval Events: late note for 10/25/ awake, comfortable Constitutional: Reports: no symptoms HEENT: Repors: no symptoms Respiratory: Reports: no symptoms Allergies: Coded Allergies: FLUPHENAZINE (Unverified Allergy, Unknown, 10/19/16) HALOPERIDOL (Unverified Allergy, Unknown, 10/19/16) Objective Last 24 Hour Vital Signs Date Time Temp Pulse Resp B/P Pulse Ox O2 Delivery O2 Flow Rate FiO2 10/26/16 20:00 98.1 76 18 105/63 99 Nasal Cannula 3.0 10/26/16 19:30 96 Nasal Cannula 2.0 28 10/26/16 19:30 73 18 Nasal Cannula 2.0 28 10/26/16 19:30 Nasal Cannula 2.0 28 10/26/16 15:44 97.7 75 20 103/63 97 Nasal Cannula 2.0 10/26/16 11:58 98.2 80 23 98/60 96 Nasal Cannula 2.0 10/26/16 07:47 97.7 81 20 85/53 98 Nasal Cannula 2.0 10/26/16 06:33 78 18 Nasal Cannula 2.0 10/26/16 06:33 98 Nasal Cannula 2.0 10/26/16 06:33 Nasal Cannula 2.0 10/26/16 04:00 97.0 80 18 105/64 Room Air 10/26/16 00:00 97.0 80 18 105/64 97 Room Air Intake and Output 10/25/16 10/26/16 19:00 07:00 Intake Total 1040 ml 1587.416 ml Output Total 1200 ml 1100 ml Balance -160 ml 487.416 ml Free Water 200 ml 200 ml IV Total 477.416 ml Tube Feeding 840 ml 910 ml Output Urine Total 1200 ml 1100 ml # Bowel Movements 1 2 Objective General Appearance: WD/WN HEENT: normocephalic, atraumatic Respiratory/Chest: chest wall non-tender, lungs clear Cardiovascular: normal peripheral pulses, normal rate Abdomen: normal bowel sounds, soft, non tender Genitourinary: normal external genitalia Extremities: no cyanosis Skin: no rash 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, no motor/sensory deficits Lymphatic: no neck adenopathy Laboratory Tests 10/26/16 05:18: White Blood Count 13.8H, Red Blood Count 4.15L, Hemoglobin 10.0L, Hematocrit 32.4L, Mean Corpuscular Volume 78L, Mean Corpuscular Hemoglobin 24.1L, Mean Corpuscular Hemoglobin Concent 30.9L, Red Cell Distribution Width 17.0H, Platelet Count 226, Mean Platelet Volume 9.8, Neutrophils (%) (Auto) 75.3H, Lymphocytes (%) (Auto) 17.6L, Monocytes (%) (Auto) 5.0, Eosinophils (%) (Auto) 1.8, Basophils (%) (Auto) 0.2, Sodium Level 144, Potassium Level 3.8, Chloride Level 102, Carbon Dioxide Level 31H, Anion Gap 11, Blood Urea Nitrogen 15, Creatinine 0.5L, Estimat Glomerular Filtration Rate > 60, Glucose Level 126H, Uric Acid 3.3, Calcium Level 8.6, Phosphorus Level 3.0, Magnesium Level 1.8, Total Bilirubin < 0.2, Aspartate Amino Transf (AST/SGOT) 21, Alanine Aminotransferase (ALT/SGPT) 18, Alkaline Phosphatase 65, Pro-B-Type Natriuretic Peptide 1180H, Total Protein 6.4L, Albumin 2.6L, Globulin 3.8, Albumin/Globulin Ratio 0.6L Current Medications Medications (Trade) Dose Ordered Sig/Rafael Route PRN Reason Start Time Stop Time Status Last Admin Dose Admin Acetaminophen (Tylenol) 650 mg Q4H PRN ORAL T>100.5 10/22/16 04:00 11/21/16 03:59 Albuterol/ Ipratropium (DuoNeb 0.5-3(2.5)mg/3ml) 3 ml Q4H PRN HHN Shortness of Breath 10/22/16 04:00 10/27/16 03:59 Dextrose (Dextrose 50%) STAT PRN IV Hypoglycemia 10/22/16 19:45 11/21/16 19:44 Ertapenem 1 gm/ Sodium Chloride 55 ml @ 110 mls/hr Q24H IVPB 10/24/16 20:00 10/29/16 19:59 10/26/16 20:58 Insulin Aspart (NovoLOG) Q6HR SUBQ 10/22/16 00:00 11/21/16 00:00 10/26/16 18:30 Lorazepam (Ativan 2mg/ml 1ml) 2 mg Q2H PRN IV For Anxiety 10/22/16 02:00 10/29/16 01:59 Midodrine 10 mg 10 mg THREE TIMES A DAY GT 10/23/16 18:00 11/22/16 17:59 10/26/16 18:29 Morphine Sulfate (Morphine Sulfate) 4 mg Q4H PRN IVP Severe Pain (Pain Scale 7-10) 10/22/16 04:00 10/29/16 03:59 Ondansetron HCl (Zofran) 4 mg Q6H PRN IVP Nausea & Vomiting 10/22/16 02:00 11/21/16 01:59 Polyethylene Glycol (Miralax) 17 gm DAILYPRN PRN ORAL Constipation 10/22/16 20:00 11/21/16 19:59 Ranitidine HCl (Zantac) 150 mg TWICE A DAY GT 10/23/16 18:00 11/22/16 17:59 10/26/16 18:30 Vancomycin HCl (Vanco rx to dose) 1 ea DAILY PRN MISC PRN RX PROTOCOL 10/22/16 09:00 11/21/16 08:59 Vancomycin HCl/ Dextrose (Vancomycin/D5W) 275 ml @ 183.708 mls/hr Q12HR@0400,1600 IVPB 10/26/16 04:00 10/31/16 03:59 10/26/16 16:56 BRIE PASCUAL October 26, 2016 21:20
--- NOTE | 2016-10-26 21:21 | Pulmonology Progress Note ---
Assessment/Plan Problems: (1) Sepsis (2) FLORIAN (acute kidney injury) (3) Altered level of consciousness (4) Hypernatremia Assessment/Plan awake, looks comfortable wbc decreasing but still elevated check electrolyes tolerating feeding dvt prophylaxis check NA all notes, meds reviewed. dc to Sn[facility] with 10 days of Invanz Subjective ROS Limited/Unobtainable: Yes Interval Events: looks comfortable Allergies: Coded Allergies: FLUPHENAZINE (Unverified Allergy, Unknown, 10/19/16) HALOPERIDOL (Unverified Allergy, Unknown, 10/19/16) Objective Last 24 Hour Vital Signs Date Time Temp Pulse Resp B/P Pulse Ox O2 Delivery O2 Flow Rate FiO2 10/26/16 20:00 98.1 76 18 105/63 99 Nasal Cannula 3.0 10/26/16 19:30 96 Nasal Cannula 2.0 28 10/26/16 19:30 73 18 Nasal Cannula 2.0 28 10/26/16 19:30 Nasal Cannula 2.0 28 10/26/16 15:44 97.7 75 20 103/63 97 Nasal Cannula 2.0 10/26/16 11:58 98.2 80 23 98/60 96 Nasal Cannula 2.0 10/26/16 07:47 97.7 81 20 85/53 98 Nasal Cannula 2.0 10/26/16 06:33 78 18 Nasal Cannula 2.0 10/26/16 06:33 98 Nasal Cannula 2.0 10/26/16 06:33 Nasal Cannula 2.0 10/26/16 04:00 97.0 80 18 105/64 Room Air 10/26/16 00:00 97.0 80 18 105/64 97 Room Air Intake and Output 10/25/16 10/26/16 19:00 07:00 Intake Total 1040 ml 1587.416 ml Output Total 1200 ml 1100 ml Balance -160 ml 487.416 ml Free Water 200 ml 200 ml IV Total 477.416 ml Tube Feeding 840 ml 910 ml Output Urine Total 1200 ml 1100 ml # Bowel Movements 1 2 Objective General Appearance: WD/WN HEENT: normocephalic, atraumatic Respiratory/Chest: chest wall non-tender, lungs clear Cardiovascular: normal peripheral pulses, normal rate Abdomen: normal bowel sounds, soft, non tender Genitourinary: normal external genitalia Extremities: no cyanosis Skin: no rash 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, no motor/sensory deficits Lymphatic: no neck adenopathy Laboratory Tests 10/26/16 05:18: White Blood Count 13.8H, Red Blood Count 4.15L, Hemoglobin 10.0L, Hematocrit 32.4L, Mean Corpuscular Volume 78L, Mean Corpuscular Hemoglobin 24.1L, Mean Corpuscular Hemoglobin Concent 30.9L, Red Cell Distribution Width 17.0H, Platelet Count 226, Mean Platelet Volume 9.8, Neutrophils (%) (Auto) 75.3H, Lymphocytes (%) (Auto) 17.6L, Monocytes (%) (Auto) 5.0, Eosinophils (%) (Auto) 1.8, Basophils (%) (Auto) 0.2, Sodium Level 144, Potassium Level 3.8, Chloride Level 102, Carbon Dioxide Level 31H, Anion Gap 11, Blood Urea Nitrogen 15, Creatinine 0.5L, Estimat Glomerular Filtration Rate > 60, Glucose Level 126H, Uric Acid 3.3, Calcium Level 8.6, Phosphorus Level 3.0, Magnesium Level 1.8, Total Bilirubin < 0.2, Aspartate Amino Transf (AST/SGOT) 21, Alanine Aminotransferase (ALT/SGPT) 18, Alkaline Phosphatase 65, Pro-B-Type Natriuretic Peptide 1180H, Total Protein 6.4L, Albumin 2.6L, Globulin 3.8, Albumin/Globulin Ratio 0.6L Current Medications Medications (Trade) Dose Ordered Sig/Rafael Route PRN Reason Start Time Stop Time Status Last Admin Dose Admin Acetaminophen (Tylenol) 650 mg Q4H PRN ORAL T>100.5 10/22/16 04:00 11/21/16 03:59 Albuterol/ Ipratropium (DuoNeb 0.5-3(2.5)mg/3ml) 3 ml Q4H PRN HHN Shortness of Breath 10/22/16 04:00 10/27/16 03:59 Dextrose (Dextrose 50%) STAT PRN IV Hypoglycemia 10/22/16 19:45 11/21/16 19:44 Ertapenem 1 gm/ Sodium Chloride 55 ml @ 110 mls/hr Q24H IVPB 10/24/16 20:00 10/29/16 19:59 10/26/16 20:58 Insulin Aspart (NovoLOG) Q6HR SUBQ 10/22/16 00:00 11/21/16 00:00 10/26/16 18:30 Lorazepam (Ativan 2mg/ml 1ml) 2 mg Q2H PRN IV For Anxiety 10/22/16 02:00 10/29/16 01:59 Midodrine 10 mg 10 mg THREE TIMES A DAY GT 10/23/16 18:00 11/22/16 17:59 10/26/16 18:29 Morphine Sulfate (Morphine Sulfate) 4 mg Q4H PRN IVP Severe Pain (Pain Scale 7-10) 10/22/16 04:00 10/29/16 03:59 Ondansetron HCl (Zofran) 4 mg Q6H PRN IVP Nausea & Vomiting 10/22/16 02:00 11/21/16 01:59 Polyethylene Glycol (Miralax) 17 gm DAILYPRN PRN ORAL Constipation 10/22/16 20:00 11/21/16 19:59 Ranitidine HCl (Zantac) 150 mg TWICE A DAY GT 10/23/16 18:00 11/22/16 17:59 10/26/16 18:30 Vancomycin HCl (Vanco rx to dose) 1 ea DAILY PRN MISC PRN RX PROTOCOL 10/22/16 09:00 11/21/16 08:59 Vancomycin HCl/ Dextrose (Vancomycin/D5W) 275 ml @ 183.708 mls/hr Q12HR@0400,1600 IVPB 10/26/16 04:00 10/31/16 03:59 10/26/16 16:56 BRIE PASCUAL October 26, 2016 21:21
[2016-10-27] VITALS: BP 115/68
[2016-10-27 00:32] LABS: FREE TRIIODOTHYRONINE 1.8 pg/mL (2.0-4.4)
[2016-10-27 04:00] VITALS: BP 106/68
[2016-10-27] MEDS: Vancomycin 1gm in D5W 275ml IVPB SCH (05:24)
[2016-10-27] MEDS: NovoLOG Insulin Flexpen SUBQ SCH ×2 (05:55)
[2016-10-27 07:31] VITALS: BP 97/64
[2016-10-27] MEDS ORDERED: VANCOMYCIN1 GM/2502 IVPB (09:02)
[2016-10-27] MEDS ORDERED: INVANZ1 GM IVPB (09:03)
--- NOTE | 2016-10-27 09:25 | Infectious Diseases Prog Note ---
Assessment/Plan Assessment/Plan A: The patient is a 66-year-old male with UTI : ESBL Ecoli and UCx : ( Mariaelena : Colonizer ) Pneumonian SCx : MRSA C-xray : Bilateral parahilar infiltrates, Wnd Cx: MRSA and ACB ( Colonizers ) Sepsis , SP Leukocytosis Respiratory distress, SP Hypotension hx of Pneumonia (pneumococcus, pseudomonas and MRSA ( 09/2016 ) History of urinary tract infection recently PICC 5/ COPD Diabetes Peptic ulcer disease Peripheral neuropathy Bipolar disorder PLAN: cont on IV Invanz d# and vancomycin day # , ok to DC w cont of AB Rx ( 10/24 SP Zosyn day # 6 ) Monitor CBC Monitor BMP Monitor chest x-ray Subjective Constitutional: Denies: anorexia, chills, drenching sweats, fatigue, fever, no symptoms, other Allergies: Coded Allergies: FLUPHENAZINE (Unverified Allergy, Unknown, 10/19/16) HALOPERIDOL (Unverified Allergy, Unknown, 10/19/16) Subjective afebrile Objective Vital Signs Last 24 Hour Vital Signs Date Time Temp Pulse Resp B/P Pulse Ox O2 Delivery O2 Flow Rate FiO2 10/27/16 09:05 75 18 Nasal Cannula 2.0 28 10/27/16 09:05 Nasal Cannula 2.0 28 10/27/16 09:05 96 Nasal Cannula 2.0 28 10/27/16 07:31 97.3 86 14 97/64 8 Nasal Cannula 10/27/16 04:00 97.0 87 18 106/68 97 Nasal Cannula 3.0 10/27/16 00:00 97.0 86 18 115/68 98 Nasal Cannula 8.0 10/26/16 20:00 98.1 76 18 105/63 99 Nasal Cannula 3.0 10/26/16 19:30 96 Nasal Cannula 2.0 28 10/26/16 19:30 73 18 Nasal Cannula 2.0 28 10/26/16 19:30 Nasal Cannula 2.0 28 10/26/16 15:44 97.7 75 20 103/63 97 Nasal Cannula 2.0 10/26/16 11:58 98.2 80 23 98/60 96 Nasal Cannula 2.0 Height (Feet): 6 Height (Inches): 6.00 Weight (Pounds): 138 HEENT: anicteric Respiratory/Chest: normal breath sounds Cardiovascular: regularly irregular Abdomen: non distended Laboratory Tests Test 10/27/16 03:00 Vancomycin Level Trough 16.4 ug/mL (5.0-12.0) H Current Medications Medications (Trade) Dose Ordered Sig/Rafael Route PRN Reason Start Time Stop Time Status Last Admin Dose Admin Acetaminophen (Tylenol) 650 mg Q4H PRN ORAL T>100.5 10/22/16 04:00 11/21/16 03:59 Dextrose (Dextrose 50%) STAT PRN IV Hypoglycemia 10/22/16 19:45 11/21/16 19:44 Ertapenem 1 gm/ Sodium Chloride 55 ml @ 110 mls/hr Q24H IVPB 10/24/16 20:00 10/29/16 19:59 10/26/16 20:58 Insulin Aspart (NovoLOG) Q6HR SUBQ 10/22/16 00:00 11/21/16 00:00 10/27/16 05:55 Lorazepam (Ativan 2mg/ml 1ml) 2 mg Q2H PRN IV For Anxiety 10/22/16 02:00 10/29/16 01:59 Midodrine 10 mg 10 mg THREE TIMES A DAY GT 10/23/16 18:00 11/22/16 17:59 10/26/16 18:29 Morphine Sulfate (Morphine Sulfate) 4 mg Q4H PRN IVP Severe Pain (Pain Scale 7-10) 10/22/16 04:00 10/29/16 03:59 Ondansetron HCl (Zofran) 4 mg Q6H PRN IVP Nausea & Vomiting 10/22/16 02:00 11/21/16 01:59 Polyethylene Glycol (Miralax) 17 gm DAILYPRN PRN ORAL Constipation 10/22/16 20:00 11/21/16 19:59 Ranitidine HCl (Zantac) 150 mg TWICE A DAY GT 10/23/16 18:00 11/22/16 17:59 10/26/16 18:30 Vancomycin HCl (Vanco rx to dose) 1 ea DAILY PRN MISC PRN RX PROTOCOL 10/22/16 09:00 11/21/16 08:59 Vancomycin HCl/ Dextrose (Vancomycin/D5W) 275 ml @ 183.708 mls/hr Q12HR@0400,1600 IVPB 10/26/16 04:00 10/31/16 03:59 10/27/16 05:24 BELL PAREKH M.D. October 27, 2016 09:25
[2016-10-27] MEDS: Midodrine 10mg tab GT SCH (09:44)
--- NOTE | 2016-10-27 09:46 | General Progress Note ---
Assessment/Plan Status: stable Assessment/Plan status: Septic Shock, recovering Acute renal failure, Cr lower, Na lower Free water deficit h/o COPD , DM , Psych disease plan: no labs today- Free water - D5W Midodrine for low BP antibiotics Hemodynamic support Keep the BS in check Avoid nephrotoxics per orders ? DC planning? Subjective ROS Limited/Unobtainable: No Constitutional: Reports: malaise Allergies: Coded Allergies: FLUPHENAZINE (Unverified Allergy, Unknown, 10/19/16) HALOPERIDOL (Unverified Allergy, Unknown, 10/19/16) Objective Last 24 Hour Vital Signs Date Time Temp Pulse Resp B/P Pulse Ox O2 Delivery O2 Flow Rate FiO2 10/27/16 09:05 75 18 Nasal Cannula 2.0 28 10/27/16 09:05 Nasal Cannula 2.0 28 10/27/16 09:05 96 Nasal Cannula 2.0 28 10/27/16 07:31 97.3 86 14 97/64 8 Nasal Cannula 10/27/16 04:00 97.0 87 18 106/68 97 Nasal Cannula 3.0 10/27/16 00:00 97.0 86 18 115/68 98 Nasal Cannula 8.0 10/26/16 20:00 98.1 76 18 105/63 99 Nasal Cannula 3.0 10/26/16 19:30 96 Nasal Cannula 2.0 28 10/26/16 19:30 73 18 Nasal Cannula 2.0 28 10/26/16 19:30 Nasal Cannula 2.0 28 10/26/16 15:44 97.7 75 20 103/63 97 Nasal Cannula 2.0 10/26/16 11:58 98.2 80 23 98/60 96 Nasal Cannula 2.0 Intake and Output 10/26/16 10/27/16 19:00 07:00 Intake Total 1000 ml 520 ml Output Total 1100 ml 1000 ml Balance -100 ml -480 ml Free Water 160 ml 30 ml Tube Feeding 840 ml 490 ml Output Urine Total 1100 ml 1000 ml # Bowel Movements 2 2 Laboratory Tests 10/27/16 03:00: Vancomycin Level Trough 16.4H Height (Feet): 6 Height (Inches): 6.00 Weight (Pounds): 138 General Appearance: no apparent distress Objective other PE not changed KEV FELIX October 27, 2016 09:46
[2016-10-27] MEDS ORDERED: Sterile Water Irrig 1000ml IRRIG ONE (11:06)
[2016-10-27] MEDS ORDERED: NS 550ML IV ONE ×2 (11:06)
[2016-10-27] MEDS ORDERED: Tubing IV Secondary IV ONE (11:06)
--- NOTE | 2016-10-27 15:52 | Cardiology Report ---
APPROVED REPORT EKG Measurement Heart [id number] Normal sinus rhythm Nonspecific T wave abnormality Prolonged QT Abnormal ECG
--- NOTE | 2016-10-27 17:06 | Pulmonology Progress Note ---
Assessment/Plan Problems: (1) Sepsis (2) FLORIAN (acute kidney injury) (3) Altered level of consciousness (4) Hypernatremia Assessment/Plan awake, looks comfortable wbc decreasing but still elevated check electrolyes tolerating feeding dvt prophylaxis check NA all notes, meds reviewed. dc to [facility]dc today Subjective ROS Limited/Unobtainable: No Constitutional: Reports: no symptoms HEENT: Repors: no symptoms Respiratory: Reports: no symptoms Allergies: Coded Allergies: FLUPHENAZINE (Unverified Allergy, Unknown, 10/19/16) HALOPERIDOL (Unverified Allergy, Unknown, 10/19/16) Objective Last 24 Hour Vital Signs Date Time Temp Pulse Resp B/P Pulse Ox O2 Delivery O2 Flow Rate FiO2 10/27/16 09:05 75 18 Nasal Cannula 2.0 28 10/27/16 09:05 Nasal Cannula 2.0 28 10/27/16 09:05 96 Nasal Cannula 2.0 28 10/27/16 07:31 97.3 86 14 97/64 8 Nasal Cannula 10/27/16 04:00 97.0 87 18 106/68 97 Nasal Cannula 3.0 10/27/16 00:00 97.0 86 18 115/68 98 Nasal Cannula 8.0 10/26/16 20:00 98.1 76 18 105/63 99 Nasal Cannula 3.0 10/26/16 19:30 96 Nasal Cannula 2.0 28 10/26/16 19:30 73 18 Nasal Cannula 2.0 28 10/26/16 19:30 Nasal Cannula 2.0 28 Intake and Output 10/26/16 10/27/16 19:00 07:00 Intake Total 1000 ml 520 ml Output Total 1100 ml 1000 ml Balance -100 ml -480 ml Free Water 160 ml 30 ml Tube Feeding 840 ml 490 ml Output Urine Total 1100 ml 1000 ml # Bowel Movements 2 2 Objective General Appearance: WD/WN HEENT: normocephalic, atraumatic Respiratory/Chest: chest wall non-tender, lungs clear Cardiovascular: normal peripheral pulses, normal rate Abdomen: normal bowel sounds, soft, non tender Genitourinary: normal external genitalia Extremities: no cyanosis Skin: no rash Lymphatic: no neck adenopathy Laboratory Tests 10/27/16 03:00: Vancomycin Level Trough 16.4H BRIE PASCUAL October 27, 2016 17:06
--- NOTE | 2016-10-28 20:30 | Discharge Summary ---
Discharge Summary Hospital Course Date of Admission October 19, 2016 at 12:43 Date of Discharge October 27, 2016 at 11:07 Admitting Diagnosis AMS HPI Vitaliy Trinh is a 66 year old male who was admitted on October 19, 2016 at 12:43 for Altered Mental Status Hospital Course [id number] Discharge Discharge Disposition Patient was discharged to SNF/Subacute Facility(03) Discharge Diagnoses: Deepika Allen NP October 28, 2016 20:30
--- NOTE | 2016-10-29 01:09 | Discharge Summary 2 SIG ---
DATE OF ADMISSION: 10/19/2016 DATE OF DISCHARGE: 10/27/2016 CONSULTANTS: 1. Nick Quiros M.D. 2. Remy Campoverde M.D. BRIEF HOSPITAL COURSE: The patient is a 66-year-old male with a history of dementia, cachexia, and diabetes, was brought in from [facility] by paramedics for altered mental status. On evaluation at ED, the patient had leukocytosis of 31.1 and creatinine was elevated. Sodium was critically high at 180. The patient was hypotensive and had a central line placed in to the right. The patient did not have any visualized IV access. Blood drawn was through left tibia interosseous and he was given IV hydration and antibiotics. There were multiple attempts to place central venous catheter in the neck or groin area, however, was unsuccessful as there was no visualized central vein on bedside sonogram, likely secondary to serious dehydration. He was admitted to ICU. Dr. Campoverde was consulted and was started on empiric and broad-spectrum antibiotics, Zosyn and vancomycin. The patient was in septic shock and was given hemodynamic support with free water and was followed by Dr. Quiros. A renal ultrasound done was negative with the presence of right renal cyst. Echocardiogram done showed normal left ventricular size, function, and wall motion. Ejection fraction was estimated to be grossly normal. However, test was technically difficult due to poor acoustic window. He finally had a PICC line catheter placed on the left upper extremity. He was also followed by a wound care nurse as he came in with multiple pressure ulcers. Wound care was provided with frequent turning and off-loading. He was given low air loss mattress. Creatinine lower. Urine culture showed ESBL-E. coli and Mariaelena. Wound culture with MRSA and Acinetobacter. He was given vancomycin and Invanz and at the time of discharge, he was cleared to continue antibiotics to complete a 14-day course of antibiotic. FINAL DIAGNOSES: 1. Sepsis. 2. Acute kidney injury. 3. Hypernatremia. 4. Free water deficit. 5. Diabetes mellitus. 6. Urinary tract infection with ESBL-Escherichia coli. 7. Pneumonia. 8. Multiple decubitus pressure ulcers, present on admission. 9. Chronic obstructive pulmonary disease. 10. Peptic ulcer disease. 11. Bipolar disorder. 12. Peripheral neuropathy. 13. Acute metabolic encephalopathy Janis Flowers M.D. I have been assigned to dictate discharge summary on this account and I was not involved in the patient's management. Deepika Allen N.P. DR: Kunal JOB#: [id number] CC:
== END 2016-10-27 11:07 | DRG 871 ==
LOC: EDBD 12:01 → EMR 12:37 → ICU 12:43 → EDBEDREQSVC 12:55 → EDBEDREQ 12:55 → 2W 10-20 18:37 → 4E 10-21 23:48
PROC: 02HV33Z Insertion of Infusion Device into Superior Vena Cava, Percutaneous Approach (ICD-10-PCS; principal; 2016-10-20)
DX: A41.9 Sepsis, unspecified organism (principal); R65.21 Severe sepsis with septic shock; G93.40 Encephalopathy, unspecified; G93.41 Metabolic encephalopathy; L89.220 Pressure ulcer of left hip, unstageable; J15.212 Pneumonia due to Methicillin resistant Staphylococcus aureus; N17.9 Acute kidney failure, unspecified; E87.0 Hyperosmolality and hypernatremia; L89.213 Pressure ulcer of right hip, stage 3; N39.0 Urinary tract infection, site not specified; R64 Cachexia; E11.9 Type 2 diabetes mellitus without complications; B96.20 Unspecified Escherichia coli [E. coli] as the cause of diseases classified elsewhere; J44.9 Chronic obstructive pulmonary disease, unspecified; Z88.8 Allergy status to other drugs, medicaments and biological substances; F03.90 Unspecified dementia, unspecified severity, without behavioral disturbance, psychotic disturbance, mood disturbance, and anxiety; Z16.12 Extended spectrum beta lactamase (ESBL) resistance; F31.9 Bipolar disorder, unspecified; G62.9 Polyneuropathy, unspecified; K27.9 Peptic ulcer, site unspecified, unspecified as acute or chronic, without hemorrhage or perforation; L89.890 Pressure ulcer of other site, unstageable
CPT/HCPCS: 36415; 36569; 36600; 70450; 71010; 76775; 76937; 80053; 80202; 81001; 82436; 82533; 82550; 82553; 82803; 82962; 82977; 83605; 83735; 83880; 83930; 83935; 84100; 84133; 84300; 84439; 84443; 84481; 84484; 84550; 85007; 85025; 85610; 85730; 86140; 87040; 87070; 87081; 87086; 87181; 87205; 87324; 89050; 93005; 93306; 94664; 94760; J1815; J8499